=== PATIENT | male | born 1945 | race African-American/Black ===

== ENCOUNTER 2020-07-31 20:55 | Observation (INO) | payer MEDICARE, SELFPAY ==
--- NOTE | ~2020-07-31 | CT_ITS ---
EXAMINATION: CT abdomen pelvis wo con DATE: 07/31/2020 23:30 INDICATION: Lower abdominal pain and distention TECHNIQUE: Computed tomography (CT) of the abdomen and pelvis was performed without intravenous contr ast. The dose-length product (DLP) was 1240.56 mGy-cm. Automated exposure control and iterative recon struction technique were employed. COMPARISON: 03/16/2015 FINDINGS: Minimal dependent atelectasis is present in the lung bases. The heart size is normal. There is a chronic small right pleural effusion. There is a small sliding hiatal hernia. Within the limita tions of noncontrast examination, the liver, spleen, pancreas, gallbladder, and adrenal glands are no rmal. Cysts of the kidneys measure up to 3 cm on the right. No pathologically enlarged abdominal or p elvic lymph nodes are identified. There are multiple dilated loops of small bowel in the left abdomen . A relative transition is present in the midabdomen. The distal small bowel and colon are partially decompressed. There is moderate lumbar spondylosis. IMPRESSION: 1. Dilated small bowel of the left abdomen consistent with ileus versus obstruction. Reviewed, dictated and finalized at location A. IMPRESSION: 1. Dilated small bowel of the left abdomen consistent with ileus versus obstruc tion.
--- NOTE | ~2020-07-31 | XR_ITS ---
XR UGI water soluble w sbs DATE: 08/01/2020 10:01 INDICATION: Abdominal pain, distention, constipation. Dilated small bowel. TECHNIQUE: Single contrast upper gastrointestinal series and small bowel follow-through 173.991 DAP 101 images 0.8 minutes fluoroscopy time COMPARISON: 07/31/[address] abdomen pelvis FINDINGS: No stricture, mucosal fold thickening, ulceration or intraluminal mass lesion of the esopha lily or stomach is detected. There is a small ulcer in the inferior portion of the duodenal bulb with surrounding mound of edema. There is adjacent mucosal fold thickening. There is mild proximal to mid small bowel dilatation. Contrast material reaches the colon within 1 ho ur; no evidence of small bowel obstruction. No persistent small bowel filling defect is evident. Spot radiographs of the terminal ileum reveal no apparent abnormality. IMPRESSION: Duodenal ulcer No evidence of small bowel obstruction Reviewed, dictated and finalized at [facility]. Reviewed, dictated and finalized at location A.
[2020-07-31 21:01] VITALS: BP 141/68; PULSE 92; RESP 18; TEMP 36.1; O2SAT 100
[2020-07-31 21:18] LABS: Basophils Percent Auto 0.5 % (0.2-1.2); Eosinophils Absolute Auto 0.2 K/mm3 (0-0.3); Eosinophils Percent Auto 1.8 % (0-4.4); Hematocrit 40.9 % (42.0-52.0); Hemoglobin 14.5 g/dL (14.0-18.0); Immature Granulocyte Absolute 0.06 K/mm3 (0.00-0.031); Immature Granulocyte Percent A 0.7 % (0-0.5); Lymphocytes Absolute Auto 1.21 K/mm3 (0.9-3.2); Lymphocytes Percent Auto 13.8 % (18.3-44.2); Mean Corpuscular HGB Conc 35.5 g/dl (32-36); Mean Platelet Volume 9.8 fl (7.4-10.4); Monocytes Percent Auto 11.8 % (2.6-8.5); Neutrophils Absolute Auto 6.3 K/mm3 (1.3-6.7); Neutrophils Percent Auto 71.4 % (45.5-73.1); Platelet Count Result 304 k/mm3 (150-375); Red Blood Count 4.26 M/mm3 (4.6-6.20); Red Cell Distribution Width 14.6 % (11.5-14.5); White Blood Count 8.8 K/mm3 (4.5-10.0)
[2020-07-31 21:26] LABS: Add Urine Microscopic? YES; Appearance Urine Cloudy (Clear); Bilirubin Urine Negative (Negative); Blood Urine Negative (Negative); Color Urine Amber (Yellow); Glucose Urine UA Negative (Negative); Ketones Urine Negative (Negative); Leukocyte Esterase Ur Negative LEU/UL (Negative); Nitrate Urine Negative (Negative); Protein Urine 2+ mg/dL (Negative); Urobilinogen Urine Negative mg/dL (<2.0)
[2020-07-31 21:30] LABS: Alanine Aminotransferase 16 U/L (4-50); Albumin Level 3.7 g/dL (3.5-5.1); Alkaline Phosphatase 80 U/L (38-126); Anion Gap 12 mmol/L (8-16); Aspartate Amino Transferase 23 U/L (17-59); Bilirubin,Total 0.5 mg/dL (0.2-1.3); Blood Urea Nitrogen 63 mg/dL (9-20); Calcium 8.8 mg/dL (8.4-10.2); Carbon Dioxide 26 mmol/L (22-30); Chloride 100 mmol/L (98-107); Estimated CRCL calculation 35 ml/min; Estimated Glomerular Filt Rate 40; Glucose 179 mg/dL (75-110); Lipase 69 U/L (23-300); Potassium 3.3 mmol/L (3.4-5.0); Sodium 138 mmol/L (137-145)
[2020-07-31 21:38] LABS: Bacteria Urine 1+ /hpf; Mucus Urine Few /lpf; RBC Urine 0-2 /hpf (0-2); Squamous Epithelial Cell Urine Rare /hpf (Few); WBC Urine None seen /hpf (0-3)
[2020-07-31] MEDS: SODIUM CHLORIDE 0.9% IV 1,000 ML 999 ML IV CONT (23:12)
[2020-07-31] MEDS: ONDANSETRON INJ 4 MG/2 ML VIAL IV PUSH (23:12)
[2020-07-31 23:43] VITALS: BP 133/71; PULSE 87; RESP 14; O2SAT 93
--- NOTE | 2020-08-01 01:21 | ED.ABDPAIN ---
HPI - Abdominal Pain General Chief Complaint: Abdominal Pain Stated Complaint: abd pain, n/v, diarrhea Time Seen by Provider: 07/31/20 22:56 History of Present Illness HPI narrative: Patient is a 75-year-old male who presents ER with abdominal pain and distention. Reports 5 days ago he started having lower abdominal cramping. He is then developed distention and bloating in his abdomen. Has frequent belching. He has had occasional emesis that improves some of his discomfort. Reports 2-3 loose stools over the last 5 days. Reports she has been flatulent. No fevers or chills or sweats. No previous surgeries to the abdomen. Has taken Pepto-Bismol without relief. Related Data Home Medications Medication Instructions Recorded Confirmed warfarin 1 mg tablet 3 mg PO QTUTHSA tablet 09/09/19 fluticasone propionate 50 2 spray NASAL DAILY 09/11/19 mcg/actuation nasal spray,suspension methotrexate sodium 2.5 mg tablet 20 mg PO WEEKLY tablet 09/11/19 warfarin 1 mg tablet 0.5 mg PO DAILY tablet 09/11/19 warfarin 4 mg tablet 8 mg PO DAILY tablet 09/11/19 warfarin 4 mg tablet 4 mg PO QTUTHSASU 09/15/19 warfarin 1 mg tablet 0.5 mg PO .QSAMOWEFR tablet 10/22/19 warfarin 5 mg tablet 5 mg PO DAILY 10/22/19 Allergies Allergy/AdvReac Type Severity Reaction Status Date / Time No Known Allergies Allergy Mild Verified 07/31/20 22:57 Review of Systems Review of Systems: All systems reviewed & are unremarkable except as noted in HPI and below Constitutional: Constitutional: Denies chills, Denies fever(s) and Denies weakness ENT: Denies nasal congestion and Denies sore throat Cardiovascular: Cardiovascular: Denies chest pain and Denies radiating jaw, neck or arm pain Respiratory: Respiratory: Denies cough and Denies dyspnea Gastrointestinal: Gastrointestinal: Reports abdominal pain, Reports bloating, Denies constipation, Reports diarrhea, Reports nausea and Reports vomiting [facility] Past Medical History Medical History (Updated 08/01/20 @ 01:46 by James Mancuso MD) DVT (deep venous thrombosis) Essential (primary) hypertension Gastro-esophageal reflux disease without esophagitis Gout, unspecified Hypercholesterolemia Hypothyroidism Prostate cancer Rheumatoid arthritis Surgical History Surgical History (Updated 08/01/20 @ 01:22 by James Mancuso MD) No history of previous surgery Social History Social History Smoking status: Never smoker Second hand tobacco smoke exposure: No Alcohol intake: current Exam Narrative: Exam Narrative: GENERAL: Well-appearing, well-nourished, and in no acute distress. HEAD: Normocephalic, atraumatic. CHEST: Clear to auscultation. No respiratory distress. HEART: Regular rate and rhythm. Normal peripheral pulses. ABDOMEN: Soft, nontender, distended, hypoactive bowel sounds. EXTREMITIES: Normal range of motion. 1+ edema. SKIN: Warm, dry, no rash. NEURO: Alert and oriented x3. PSYCH: Normal mood and affect. Course Course Emergency Course: Discussed case with general surgery. Admit for observation and small bowel follow-through in the morning. Obstruction versus ileus. Difficult to discern with noncontrast CT. Vital Signs Vital signs: Vital Signs Temperature 96.9 F L 07/31/20 21:01 Pulse Rate 92 07/31/20 21:01 Respiratory Rate 18 07/31/20 21:01 Blood Pressure 141/68 H 07/31/20 21:01 Pulse Oximetry 100 07/31/20 21:01 Temperature 96.9 F L 07/31/20 21:01 Pulse Rate 87 07/31/20 23:43 Respiratory Rate 14 07/31/20 23:43 Blood Pressure 133/71 07/31/20 23:43 Pulse Oximetry 93 07/31/20 23:43 MDM - Abdominal Pain Lab Data Result diagrams: 07/31/20 21:09 07/31/20 21:09 Labs: Lab Results 07/31/20 07/31/20 07/31/20 Range/Units 21:09 21:09 21:10 WBC 8.8 (4.5-10.0) K/mm3 RBC 4.26 L (4.6-6.20) M/mm3 Hgb 14.5 (14.0-18.0)
[2020-08-01 01:35] VITALS: BP 142/70; PULSE 87; RESP 18; TEMP 36.6; O2SAT 93
[2020-08-01 01:59] LABS: INR 2.7
[2020-08-01 02:01] LABS: Partial Thromboplastin Time 65.9 SECONDS (22.3-36.8)
[2020-08-01 02:15] VITALS: BP 141/68; PULSE 87; RESP 20; TEMP 36.9; O2SAT 97; BMI 35.2
--- NOTE | 2020-08-01 02:45 | ADMGEN ---
This patient, Jed Oconnor Jr., was admitted to 3 [facility] Surg Room 317-02. Patient/family oriented to hospital policies and general routines including ID bracelet, bed and alarms, visiting hours, pain management, procedures, bathroom and other care routines, personal items, smoking policy, room service/diet, and visiting hours. Valuables list has been completed. Information on how to activate the Rapid Response Team has been discussed. Patient/Family are encouraged to report perceived risks to care and to ask questions if they do not understand what they are told or what they should do.
[2020-08-01 06:00] VITALS: BP 151/74; PULSE 89; RESP 20; TEMP 37.1; O2SAT 95
--- NOTE | 2020-08-01 13:12 | PM.SD ---
Same Day Admit/Disch: HPI History of Present Illness Chief complaint: abdominal pain, bloating Narrative: Jed Oconnor Jr. is a 75 year old male Who presented to the emergency department overnight with abdominal pain and bloating over the past week. The patient has been experiencing predominantly lower abdominal pain and slightly pain off to the right lower abdomen. He is also been bloated. He has had nausea and vomiting. His stools have been somewhat loose. He states that he tried a Dulcolax tablet to help his bowels move, but he did not have any significant relief. He has never had symptoms like this before and he denies any prior abdominal surgeries. He does get acid reflux and heartburn fairly frequently and usually takes Phazyme to help with this. He denies any blood in his stool and denies any black tarry stools. He was admitted and kept NPO. A small-bowel follow-through was obtained this morning and he has had multiple bowel movements since then. He states that his pain and bloating have subsided also. He is hungry and wants to eat. [facility] Past Medical History Medical History DVT (deep venous thrombosis) Essential (primary) hypertension Gastro-esophageal reflux disease without esophagitis Gout, unspecified Hypercholesterolemia Hypothyroidism Prostate cancer Rheumatoid arthritis Surgical History Surgical History No history of previous surgery Family History Family History Mother Hypertension Cerebrovascular accident Sibling Cerebrovascular accident Cancer Social History Social History Smoking status: Never smoker Second hand tobacco smoke exposure: No Alcohol intake: current Substance use: never Spiritual care concerns: No Same Day Admit/Disch: Med Pre-admit Medications Home Medications Medication Instructions Recorded Confirmed Type fluticasone propionate 50 2 spray NASAL DAILY PRN 09/11/19 08/01/20 History mcg/actuation nasal spray,suspension methotrexate sodium 2.5 mg tablet 20 mg PO WEEKLY tablet 09/11/19 08/01/20 History tadalafil 20 mg tablet 20 mg PO DAILY PRN #8 tablet 02/02/20 08/01/20 Rx nifedipine 90 mg tablet,extended 90 mg PO DAILY #90 tablet 05/28/20 08/01/20 Rx release 24 hr potassium chloride 20 mEq 20 meq PO DAILY #90 tablet 05/28/20 08/01/20 Rx tablet,extended release warfarin 6 mg tablet 6 mg PO DAILY #90 tablet 06/19/20 08/01/20 Rx allopurinol 300 mg tablet 300 mg PO DAILY #90 tablet 07/04/20 08/01/20 Rx atenolol 50 mg-chlorthalidone 25 1 tablet PO DAILY #90 tablet 07/04/20 08/01/20 Rx mg tablet glimepiride 1 mg tablet 1 mg PO QAM #90 tablet 07/04/20 08/01/20 Rx levothyroxine 50 mcg tablet 50 mcg PO DAILY #90 tablet 07/14/20 08/01/20 Rx Exam Const: General: alert; No acute distress Orientation/consciousness: patient oriented x3 Limitations: no limitations HENMT: Head: normocephalic and atraumatic Ears: hearing grossly normal bilaterally General nose exam: Normal external nose present and Normal nares present Mouth: Yes Normal oral and palatal mucosa present and Yes moist mucous membranes Eyes: General: appearance normal, both eyes and all related structures Conjunctivae: conjunctivae normal Sclera: sclerae normal Pupils: Equal, round and reactive pupils present EOM: EOMs intact bilaterally Neck: Neck: normal visual inspection, full ROM, no lymphadenopathy, supple and no JVD Lymphatic: no lymphadenopathy noted Chest: Chest palpation & inspection: normal inspection of the chest Resp: Effort & Inspection: normal respiratory effort and able to speak in complete sentences Auscultation: clear to auscultation bilaterally Percussion: percussion normal Cardio: Jugular venous distension: no JVD Rate: regular rate Rhyth
[2020-08-01 14:00] VITALS: BP 126/58; PULSE 89; RESP 20; TEMP 37.4; O2SAT 95
--- NOTE | 2020-08-01 17:40 | PC.NURSE ---
Pt is A&O x 3. Pt has discharge orders in. Pt has had IV removed, and discharge paperwork reviewed. Pt exhibited good understanding of discharge instructions. Pt was assisted downstairs per wheelchair, by staff.
== END 2020-08-01 17:42 | disposition home or self-care (01) ==
LOC: ANHED 08-01 01:46 → ANH3MEDSUR 08-01 02:04
PROVIDERS: Admitting Provider Surgery; Emergency Provider Emergency Medicine; PCP Internal Medicine; Visit Provider Surgery
DX: K26.9 Duodenal ulcer, unspecified as acute or chronic, without hemorrhage or perforation (principal); R93.5 Abnormal findings on diagnostic imaging of other abdominal regions, including retroperitoneum; I10 Essential (primary) hypertension; E03.9 Hypothyroidism, unspecified; Z86.718 Personal history of other venous thrombosis and embolism; Z85.46 Personal history of malignant neoplasm of prostate
CPT/HCPCS: 36415; 74176; 74240; 74248; 80053; 81001; 83690; 85025; 85610; 85730; 96361; 96374; 99285; A9270; G0378; J2405; J7030

== ENCOUNTER 2020-09-20 22:03 | Inpatient (IN) | payer MEDICARE, SELFPAY ==
--- NOTE | ~2020-09-20 | CT_ITS ---
. EXAMINATION: CT guide absc cath placement DATE: 09/22/2020 15:10 INDICATION: Perforated appendicitis with intra-abdominal abscess. TECHNIQUE: The procedure including the risks, benefits, and alternatives was discussed with the patie nt. Risks discussed included bleeding and infection. The patient understood the risks and benefits an d agreed to proceed. The patient was confirmed to be receiving appropriate antibiotic coverage. The skin overlying the abdomen was prepped and draped in usual sterile fashion. Anesthetic was administe red with 1% lidocaine subcutaneously. An 18 gauge trochar needle was inserted into the abdominal absc ess with CT guidance. The needle was exchanged over a wire for 6 Kinyarwanda and 8 Kinyarwanda dilators and the n for an 8.5 Kinyarwanda pigtail catheter. The catheter was stitched to the skin, and a sterile dressing w as applied. The mA was adjusted according to patient size. Iterative reconstruction technique was emp loyed. The dose-length product was 171.01 mGy-cm. There were no immediate complications. FINDINGS: CT images demonstrate the catheter within the fluid collection. 15 mL fluid was aspirated f or testing. IMPRESSION: 1. Successful CT-guided abdominal abscess drainage. 2. 15 mL whitehead, opaque, foul-smelling fluid was sent for aerobic and anaerobic cultures. Reviewed, dictated and finalized at location A. CREAM VENDOR IMPRESSION: 1. Successful CT-guided abdominal abscess drainage. 2. 15 mL whitehead, opaque, foul-smelling fluid was sent for aerobic and anaerobic cu ltures.
--- NOTE | ~2020-09-20 | CT_ITS ---
EXAMINATION: CT abdomen pelvis wo con DATE: 09/20/2020 23:54 INDICATION: Diffuse abdominal pain TECHNIQUE: Computed tomography (CT) of the abdomen and pelvis was performed without intravenous contr ast. Automated exposure control and iterative reconstruction technique were employed. The dose-length product was 1231.16 mGy-cm. COMPARISON: 08/01/2020 and 03/16/2015 FINDINGS: Long axis and scattered mild atelectasis at the bilateral lower lung zones. Heart size is normal. No pericardial or pleural effusion. Liver, gallbladder, spleen, pancreas and bilateral adrenal glands ar e normal. Bilateral renal cysts the largest on the right measuring 3.7 cm. Mild scattered colonic div erticulosis without adjacent inflammatory change to suggest diverticulitis. The central appendix appe ars dilated to approximately 2 cm with normal caliber distal tip and prominent surrounding inflammato ry stranding suggesting acute appendicitis with rupture. There a 4.7 x 3.1 x 3.6 cm loculated fluid c ollection suspicious for abscess situated amongst the small bowel slightly anterior and medial to the appendix. No dilated bowel to suggest obstruction. Bladder is normal. No free intraperitoneal gas. N o pathologically enlarged abdominal or pelvic lymphadenopathy. Mild lumbar spondylosis with grade 1 a nterolisthesis L4 on L5. IMPRESSION: 1. Likely ruptured acute appendicitis with prominent inflammatory stranding in the right lower quadra nt surrounding a likely 4.7 x 3.1 x 3.6 cm abscess. Reviewed, dictated and finalized at [facility]. E LOADER IMPRESSION: 1. Likely ruptured acute appendicitis with prominent inflammatory stranding in the right lower quadrant surrounding a likely 4.7 x 3.1 x 3.6 cm abscess.
[2020-09-20 22:10] VITALS: BP 155/87; PULSE 126; RESP 22; TEMP 37.5; O2SAT 96
[2020-09-20 22:36] LABS: Basophils Percent Auto 0.2 % (0.2-1.2); Eosinophils Percent Auto 0.1 % (0-4.4); Hematocrit 42.2 % (42.0-52.0); Hemoglobin 14.6 g/dL (14.0-18.0); Immature Granulocyte Absolute 0.06 K/mm3 (0.00-0.031); Immature Granulocyte Percent A 0.4 % (0-0.5); Lymphocytes Absolute Auto 0.95 K/mm3 (0.9-3.2); Mean Corpuscular HGB Conc 34.6 g/dl (32-36); Mean Corpuscular Hemoglobin 33.1 pg (26-34); Mean Corpuscular Volume 95.7 fl (80-100); Mean Platelet Volume 10.8 fl (7.4-10.4); Monocytes Absolute Auto 1.7 K/mm3 (0.1-0.6); Monocytes Percent Auto 12.5 % (2.6-8.5); Neutrophils Absolute Auto 10.9 K/mm3 (1.3-6.7); Neutrophils Percent Auto 79.8 % (45.5-73.1); Platelet Count Result 175 k/mm3 (150-375); Red Blood Count 4.41 M/mm3 (4.6-6.20); White Blood Count 13.6 K/mm3 (4.5-10.0)
[2020-09-20] MEDS: SODIUM CHLORIDE 0.9% IV 1,000 ML 999 ML IV CONT (22:46)
--- NOTE | 2020-09-20 22:48 | ED.ABDPAIN ---
HPI - Abdominal Pain General Chief Complaint: Abdominal Pain Stated Complaint: stomach pain Time Seen by Provider: 09/20/20 22:13 Source: patient Mode of arrival: ambulatory Limitations: no limitations History of Present Illness HPI narrative: This patient is a 75 year old male who presents for evaluation of lower abdominal pain. He states this pain has been present for 4 days and it has been constant. He denies nausea, vomiting , fever or chills. He has been taking a stool softeners and he has been having loose stools. Related Data Home Medications Medication Instructions Recorded Confirmed fluticasone propionate 50 2 spray NASAL DAILY PRN 09/11/19 08/10/20 mcg/actuation nasal spray,suspension methotrexate sodium 2.5 mg tablet 20 mg PO WEEKLY tablet 09/11/19 08/10/20 warfarin 1 mg tablet 1 mg PO .QD tablet 08/08/20 08/10/20 Allergies Allergy/AdvReac Type Severity Reaction Status Date / Time No Known Allergies Allergy Mild Verified 08/10/20 08:44 Review of Systems Review of Systems: All systems reviewed & are unremarkable except as noted in HPI and below Constitutional: Constitutional: Denies chills and Denies fever(s) Cardiovascular: Cardiovascular: Denies chest pain Respiratory: Respiratory: Denies dyspnea Gastrointestinal: Gastrointestinal: Reports abdominal pain and Reports diarrhea [facility] Past Medical History Medical History (Updated 09/21/20 @ 02:03 by Sofiya Irving MD) DVT (deep venous thrombosis) Essential (primary) hypertension Gastro-esophageal reflux disease without esophagitis Gout, unspecified Hypercholesterolemia Hypothyroidism Prostate cancer Rheumatoid arthritis Surgical History Surgical History No history of previous surgery Family History Family History Mother Hypertension Cerebrovascular accident Sibling Cerebrovascular accident Cancer Social History Social History Smoking status: Never smoker Second hand tobacco smoke exposure: No Alcohol intake: current Substance use: never Gender identity (if verbalized by the patient): Male Spiritual care concerns: No Exam Const: General: no acute distress and alert; No ill appearing Orientation/consciousness: patient oriented x3 Eyes: Pupils: Equal, round and reactive pupils present EOM: EOMs intact bilaterally Chest: Chest palpation & inspection: normal inspection of the chest Resp: Effort & Inspection: normal respiratory effort and no retractions Auscultation: clear to auscultation bilaterally Cardio: Rate: tachycardic Rhythm: regular rhythm Heart sounds: no murmurs GI: GI Palp: Yes Soft to palpation, Yes Tenderness to palpation present (GI) (Diffuse), Yes Guarding due to palpation present (GI) and No Rigid due to palpation Auscultation: Hypoactive bowel sounds present Back/Spine/Pelvis: Back: no CVA tenderness Skin: General skin exam: normal color Rashes: no rashes Neuro: General: patient oriented x3, moves all extremities and CN's II-XI intact bilaterally Course Consultations Consultation #1: I discussed case with Dr. Buck. I discussed cT showing ruptured appy with abscess. I asked to admit patient to hospitalist. Date: 09/21/20 Time: 00:28 Consultation #2: I discussed case with Dr. Abraham. He states he will consult but patient will need to be admitted to the surgeon given CT findings of ruptured appy with abscess Date: 09/21/20 Time: 00:45 Consultation #3: I Discussed vitals and CT scan again with DR. Buck. I discussed hospitalist declined admission . Dr. Buck accepts to service. No further recommendations. Date: 09/21/20 Time: 01:13 Vital Signs Vital signs: Vital Signs Temperature 99.5 F 09/20/20 22:10 Pulse Rate 126 H 09/20/20 22:10 Respiratory Rate 22 H 09/20/20 22:10 Blood Pres
[2020-09-20 23:10] LABS: INR 2.1; Prothrombin Time 24.1 Seconds (11.1-14.7)
[2020-09-20 23:11] LABS: Partial Thromboplastin Time 55.6 SECONDS (22.3-36.8)
[2020-09-20 23:16] LABS: Lactic Acid Reflex 1.7 mmol/L (0.7-2.1)
[2020-09-20 23:25] LABS: Alanine Aminotransferase 15 U/L (4-50); Albumin Level 3.5 g/dL (3.5-5.1); Alkaline Phosphatase 74 U/L (38-126); Anion Gap 12 mmol/L (8-16); Aspartate Amino Transferase 32 U/L (17-59); Bilirubin,Total 0.7 mg/dL (0.2-1.3); Blood Urea Nitrogen 45 mg/dL (9-20); Calcium 8.3 mg/dL (8.4-10.2); Carbon Dioxide 24 mmol/L (22-30); Chloride 100 mmol/L (98-107); Estimated CRCL calculation 28 ml/min; Estimated Glomerular Filt Rate 31; Glucose 120 mg/dL (75-110); Lipase 55 U/L (23-300); Potassium 2.8 mmol/L (3.4-5.0); Sodium 136 mmol/L (137-145)
[2020-09-21] VITALS (12 sets, daily range): BP systolic 138–166; BP diastolic 73–85; PULSE 93–117; RESP 20; TEMP 36.2–37.9; O2SAT 94–99; BMI 32.7
[2020-09-21 00:55] LABS: Add Urine Microscopic? YES; Appearance Urine Cloudy (Clear); Bacteria Urine Trace /hpf; Bilirubin Urine Negative (Negative); Blood Urine Negative (Negative); Color Urine Yellow (Yellow); Glucose Urine UA Negative (Negative); Ketones Urine Trace mg/dL (Negative); Leukocyte Esterase Ur Negative LEU/UL (Negative); Mucus Urine Few /lpf; Nitrate Urine Negative (Negative); Protein Urine 2+ mg/dL (Negative); Specific Grav Ur 1.017 (1.001-1.035); Squamous Epithelial Cell Urine Occasional /hpf (Few); Urobilinogen Urine Negative mg/dL (<2.0)
[2020-09-21] MEDS: LACTATED RINGERS 1,000 ML 999 ML IV CONT (01:20)
--- NOTE | 2020-09-21 02:02 | ECG_ITS ---
Measurements Intervals [place] Rate: 113 P: 43 WI: 162 QRS: 46 QRSD: 96 T: 2 QT: 281 QTc: 385 Interpretive Statements SINUS TACHYCARDIA BORDERLINE ST-T WAVE ABNORMALITY- DIFFUSE LEADS BASELINE ARTIFACT- AVL ABNORMAL ECG Electronically Signed On 09-21-2020 8:53:46 CALL CENTER ASSISTANT by Josef Newton D.O.
--- NOTE | 2020-09-21 02:24 | ADMGEN ---
This patient, Jed Oconnor Jr., was admitted to Medical Room 257-01. Patient/family oriented to hospital policies and general routines including ID bracelet, bed and alarms, visiting hours, pain management, procedures, bathroom and other care routines, personal items, smoking policy, room service/diet, and visiting hours. Information on how to activate the Rapid Response Team has been discussed. Patient/Family are encouraged to report perceived risks to care and to ask questions if they do not understand what they are told or what they should do.
[2020-09-21] MEDS: LACTATED RINGERS 1,000 ML 125 ML IV CONT ×3 (02:31→23:20)
--- NOTE | 2020-09-21 04:04 | PM.IMCN ---
Assessment and Plan Assessment and plan (1) Acute appendicitis with rupture: Code(s): K35.32 - Acute appendicitis with perforation and localized peritonitis, without abscess Status: Acute Assessment and Plan: The patient has been admitted to the medical-surgical floor. NPO. Continue wide-spectrum antibiotics. Monitor vital signs and urine output closely. Continue general surgery recommendations. (2) Hypokalemia: Code(s): E87.6 - Hypokalemia Status: Acute Assessment and Plan: Potassium has been replaced in the emergency room we will check serum potassium in a.m.. Continue replace potassium as needed. (3) Sepsis: Code(s): A41.9 - Sepsis, unspecified organism Status: Acute Assessment and Plan: Appears to be secondary to acute appendicitis with rupture and abscess. Monitor vital signs and urine output closely. Continue to monitor acid-base status. Continue wide-spectrum antibiotics. Blood cultures are pending. General surgery to control source of sepsis which at this time appears to be from ruptured appendicitis. (4) Acute renal failure: Code(s): N17.9 - Acute kidney failure, unspecified Status: Acute Assessment and Plan: Acute versus chronic renal failure. Monitor renal function and urine output. Continue IV fluid challenge overnight. Renally dose medications. Avoid nephrotoxin agents. (5) Leukocytosis: Code(s): D72.829 - Elevated white blood cell count, unspecified Status: Acute Assessment and Plan: Likely secondary to appendicitis and sepsis. Monitor CBCD. (6) Weakness: Code(s): R53.1 - Weakness Status: Acute Assessment and Plan: Likely secondary to sepsis and acute appendicitis. Fall precautions. Consider PT OT evaluation when appropriate. (7) Essential (primary) hypertension: Code(s): I10 - Essential (primary) hypertension Status: Acute Assessment and Plan: Monitor blood pressure. Hold home antihypertensives. We will administer IV hydralazine with parameters. 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 (9) Gastro-esophageal reflux disease without esophagitis: Code(s): K21.9 - Gastro-esophageal reflux disease without esophagitis Status: Chronic Assessment and Plan: IV PPI therapy for GI prophylaxis. (10) Hypothyroidism: Qualifiers: Hypothyroidism type: unspecified Qualified Code(s): E03.9 - Hypothyroidism, unspecified Code(s): E03.9 - Hypothyroidism, unspecified Status: Chronic Assessment and Plan: We will administer levothyroxine IV. (11) Hypercholesterolemia: Code(s): E78.00 - Pure hypercholesterolemia, unspecified Status: Chronic (12) Rheumatoid arthritis: Qualifiers: Rheumatoid arthritis location: unspecified site Rheumatoid factor presence: unspecified presence Qualified Code(s): M06.9 - Rheumatoid arthritis, unspecified Code(s): M06.9 - Rheumatoid arthritis, unspecified Status: Chronic Assessment and Plan: resume methotrexate when the patient is eating again. 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 Monitor PT INR. Consider vitamin K for reversal of INR if necessary. Additional Plan Date of service was September 21, 2020 at approximately 3:15 a.m. HPI Data of Consult Consult date: 09/21/20 Requesting Physician: Kaila Buck MD Primary Care Provider: Puneet Courtney DO Con
[2020-09-21 05:01] LABS: Basophils Percent Auto 0.3 % (0.2-1.2); Eosinophils Percent Auto 0.3 % (0-4.4); Hemoglobin 13.1 g/dL (14.0-18.0); Immature Granulocyte Absolute 0.06 K/mm3 (0.00-0.031); Immature Granulocyte Percent A 0.6 % (0-0.5); Lymphocytes Absolute Auto 0.73 K/mm3 (0.9-3.2); Lymphocytes Percent Auto 7.4 % (18.3-44.2); Mean Corpuscular HGB Conc 35.4 g/dl (32-36); Mean Corpuscular Hemoglobin 33.5 pg (26-34); Mean Corpuscular Volume 94.6 fl (80-100); Mean Platelet Volume 10.2 fl (7.4-10.4); Monocytes Absolute Auto 1.3 K/mm3 (0.1-0.6); Monocytes Percent Auto 13.1 % (2.6-8.5); Neutrophils Absolute Auto 7.7 K/mm3 (1.3-6.7); Neutrophils Percent Auto 78.3 % (45.5-73.1); Platelet Count Result 169 k/mm3 (150-375); Red Blood Count 3.91 M/mm3 (4.6-6.20); Red Cell Distribution Width 15.7 % (11.5-14.5); White Blood Count 9.9 K/mm3 (4.5-10.0)
[2020-09-21 05:15] LABS: INR 2.2; Prothrombin Time 25.3 Seconds (11.1-14.7)
[2020-09-21 05:17] LABS: Partial Thromboplastin Time 67.7 SECONDS (22.3-36.8)
[2020-09-21] MEDS: LEVOTHYROXINE SODIUM INJ 100 MCG/5 ML VIAL 25 MCG IV PUSH (06:29)
[2020-09-21 06:39] LABS: Glucose Point of Care 129 (65-105)
--- NOTE | 2020-09-21 08:13 | PM.IMHP ---
H&P: HPI History of Present Illness Date/Time: 09/21/20 08:13 Chief complaint: Acute appendicitis with abscess Narrative: Jed Oconnor Jr. is a 75 year old male presenting to the ED c 1 wk h/o progressively worsening lower abd pain. Pt reports pain initially mild and diffuse and now constant, severe, and localized more to RLQ. Pt also c/o extreme weakness and fatigue. Pt reports very poor appetite over last week. The pt denies any f/c, previous episodes. Review of Systems Constitutional: Constitutional: Reports anorexia, Denies chills, Reports fatigue, Denies fever(s), Reports lethargy, Reports malaise, Reports poor appetite, Reports weakness, Denies weight gain and Denies weight loss Eyes: Eyes: Reports no additional eye complaints ENT: Reports system reviewed and no additional complaints, except as documented Cardiovascular: Cardiovascular: Reports no additional cardiovascular complaints Respiratory: Respiratory: Reports no additional respiratory complaints Gastrointestinal: Gastrointestinal: Reports abdominal pain, Reports bloating, Denies fecal incontinence, Denies diarrhea, Denies loose stools, Reports nausea and Denies vomiting Genitourinary: Genitourinary: Reports no additional male genitourinary complaints Musculoskeletal: Musculoskeletal: Reports no additional musculoskeletal complaints Integumentary/Breasts: Skin/Breast: Reports system reviewed and no additional complaints, except as docu Neurologic: Reports system reviewed and no additional complaints, except as documented Psychiatric: Psychiatric: Reports no additional psychiatric complaints Endocrine: Endocrine: Reports no additional endocrine complaints Hematologic/Lymphatic: Hematologic/Lymphatic: Reports no additional hematologic/lymphatic complaints Allergic/Immunologic: Allergic/Immunologic: Reports no additional allergic/immunologic complaints PMFSH Past Medical History Medical History DVT (deep venous thrombosis) Essential (primary) hypertension Gastro-esophageal reflux disease without esophagitis Gout, unspecified Hypercholesterolemia Hypothyroidism Prostate cancer Rheumatoid arthritis Surgical History Surgical History No history of previous surgery Family History Family History Mother Hypertension Cerebrovascular accident Sibling Cerebrovascular accident Cancer Social History Social History Smoking status: Never smoker Second hand tobacco smoke exposure: No Alcohol intake: never Substance use: never Substance use type: does not use Gender identity (if verbalized by the patient): Male Spiritual care concerns: No Meds Home Medications and Allergies Home Medications Medication Instructions Recorded Confirmed Type fluticasone propionate 50 2 spray NASAL DAILY PRN 09/11/19 09/21/20 History mcg/actuation nasal spray,suspension methotrexate sodium 2.5 mg tablet 20 mg PO WEEKLY tablet 09/11/19 09/21/20 History nifedipine 90 mg tablet,extended 90 mg PO DAILY #90 tablet 05/28/20 09/21/20 Rx release 24 hr warfarin 6 mg tablet 6 mg PO DAILY #90 tablet 06/19/20 09/21/20 Rx allopurinol 300 mg tablet 300 mg PO DAILY #90 tablet 07/04/20 09/21/20 Rx atenolol 50 mg-chlorthalidone 25 1 tablet PO DAILY #90 tablet 07/04/20 09/21/20 Rx mg tablet glimepiride 1 mg tablet 1 mg PO QAM #90 tablet 07/04/20 09/21/20 Rx levothyroxine 50 mcg tablet 50 mcg PO DAILY #90 tablet 07/14/20 09/21/20 Rx warfarin 1 mg tablet 1.5 mg PO DAILY tablet 08/08/20 09/21/20 History docusate sodium 100 mg tablet See Rx Instructions PO .COMPLEX 08/10/20 09/21/20 Rx #180 tablet sildenafil 100 mg tablet 100 mg PO DAILY PRN #8 tablet 09/08/20 09/21/20 Rx hydroxychloroquine 200 mg PO DAILY 09/21/20 09/21/20 History leflunom
--- NOTE | 2020-09-21 09:34 | P.PNIM_ITS ---
Progress Note: A&P Assessment and Plan (1) Acute appendicitis with rupture: Code(s): K35.32 - Acute appendicitis with perforation and localized peritonitis, without abscess Status: Acute Assessment and Plan: Presented with gradually worsened lower abdominal pain. Likely ruptured acute appendicitis with prominent inflammatory stranding and likely abscess. * Management per General surgery * Continue IV Zosyn at this time * Patient is NPO for planned percutaneous drainage. His warfarin is on hold at this time. * Analgesics and antiemetics as needed. Continue IV fluid rehydration (2) Sepsis: Code(s): A41.9 - Sepsis, unspecified organism Status: Acute Assessment and Plan: Patient is septic upon presentation evident by tachycardia and leukocytosis. Secondary to acute appendicitis with rupture and abscess. Lactic 1.7. Leukocytosis has resolved. Tachycardia persists. Patient remains afebrile. * Continue IV antibiotics * Continue IV fluids * Source control with planned percutaneous drainage * Blood cultures are pending. * Monitor vital signs closely (3) Hypokalemia: Code(s): E87.6 - Hypokalemia Status: Acute Assessment and Plan: Potassium low at presentation at 2.8. Patient received IV potassium replacement. Potassium improved today to _. * Monitor potassium closely and replace as needed (4) Acute renal failure: Code(s): N17.9 - Acute kidney failure, unspecified Status: Acute Assessment and Plan: Creatinine 2.5 at presentation. Last lab in July 2020 was 2.0. Suspect the patient has chronic kidney disease with probable acute injury, possibly secondary to prerenal etiology or infection. * Monitor renal function closely. Renally dose medications and avoid nephrotoxic agents. * Continue gentle IV fluids. (5) Weakness: Code(s): R53.1 - Weakness Status: Acute Assessment and Plan: Likely secondary to sepsis and acute appendicitis. Appears to be resolved. Patient is ambulating to the restroom without difficulty. He is independent in his activities of daily living. * Fall precautions in place. * Monitor closely. Consider PT and OT eval if/when appropriate (6) Essential (primary) hypertension: Code(s): I10 - Essential (primary) hypertension Status: Acute Assessment and Plan: Blood pressure evaluated today is stable at 138/75. * Home atenolol and nifedipine on hold while NPO. * IV hydralazine available as needed while PO antihypertensives on hold. (7) Gastro-esophageal reflux disease without esophagitis: Code(s): K21.9 - Gastro-esophageal reflux disease without esophagitis Status: Chronic Assessment and Plan: Asymptomatic at this time. * Begin IV Pepcid (8) Hypothyroidism: Qualifiers: Hypothyroidism type: unspecified Qualified Code(s): E03.9 - Hypothyroidism, unspecified Code(s): E03.9 - Hypothyroidism, unspecified Status: Chronic Assessment and Plan: Chronic. * IV levothyroxine while NPO. Transition to PO when clinically appropriate. * Check TSH (9) Rheumatoid arthritis: Qualifiers: Rheumatoid arthritis location: unspecified site Rheumatoid factor presence: unspecified presence Qualified Code(s): M06.9 - Rheumatoid arthritis, unspecified Code(s): M06.9 - Rheumatoid arthritis, unspecified Status: Chronic Assessment and Plan: No com
--- NOTE | 2020-09-21 09:34 | PM.IMPN ---
Progress Note: A&P Assessment and Plan (1) Acute appendicitis with rupture: Code(s): K35.32 - Acute appendicitis with perforation and localized peritonitis, without abscess Status: Acute Assessment and Plan: Presented with gradually worsened lower abdominal pain. Likely ruptured acute appendicitis with prominent inflammatory stranding and likely abscess. Management per General surgery Continue IV Zosyn at this time Patient is NPO for planned percutaneous drainage. His warfarin is on hold at this time. Analgesics and antiemetics as needed. Continue IV fluid rehydration (2) Sepsis: Code(s): A41.9 - Sepsis, unspecified organism Status: Acute Assessment and Plan: Patient is septic upon presentation evident by tachycardia and leukocytosis. Secondary to acute appendicitis with rupture and abscess. Lactic 1.7. Leukocytosis has resolved. Tachycardia persists. Patient remains afebrile. Continue IV antibiotics Continue IV fluids Source control with planned percutaneous drainage Blood cultures are pending. Monitor vital signs closely (3) Hypokalemia: Code(s): E87.6 - Hypokalemia Status: Acute Assessment and Plan: Potassium low at presentation at 2.8. Patient received IV potassium replacement. Potassium improved today to _. Monitor potassium closely and replace as needed (4) Acute renal failure: Code(s): N17.9 - Acute kidney failure, unspecified Status: Acute Assessment and Plan: Creatinine 2.5 at presentation. Last lab in July 2020 was 2.0. Suspect the patient has chronic kidney disease with probable acute injury, possibly secondary to prerenal etiology or infection. Monitor renal function closely. Renally dose medications and avoid nephrotoxic agents. Continue gentle IV fluids. (5) Weakness: Code(s): R53.1 - Weakness Status: Acute Assessment and Plan: Likely secondary to sepsis and acute appendicitis. Appears to be resolved. Patient is ambulating to the restroom without difficulty. He is independent in his activities of daily living. Fall precautions in place. Monitor closely. Consider PT and OT eval if/when appropriate (6) Essential (primary) hypertension: Code(s): I10 - Essential (primary) hypertension Status: Acute Assessment and Plan: Blood pressure evaluated today is stable at 138/75. Home atenolol and nifedipine on hold while NPO. IV hydralazine available as needed while PO antihypertensives on hold. (7) Gastro-esophageal reflux disease without esophagitis: Code(s): K21.9 - Gastro-esophageal reflux disease without esophagitis Status: Chronic Assessment and Plan: Asymptomatic at this time. Begin IV Pepcid (8) Hypothyroidism: Qualifiers: Hypothyroidism type: unspecified Qualified Code(s): E03.9 - Hypothyroidism, unspecified Code(s): E03.9 - Hypothyroidism, unspecified Status: Chronic Assessment and Plan: Chronic. IV levothyroxine while NPO. Transition to PO when clinically appropriate. Check TSH (9) Rheumatoid arthritis: Qualifiers: Rheumatoid arthritis location: unspecified site Rheumatoid factor presence: unspecified presence Qualified Code(s): M06.9 - Rheumatoid arthritis, unspecified Code(s): M06.9 - Rheumatoid arthritis, unspecified Status: Chronic Assessment and Plan: No complaints of pain at this time. Home regimen of leflunomide and hydroxychloroquine will be resumed when appropriate. Methotrexate weekly. 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 INR is therapeutic at 2.2 Warfarin held for surgery. Monitor INR. (11) Type 2 diabetes mellitus:
[2020-09-21 09:46] LABS: Anion Gap 7 mmol/L (8-16); Blood Urea Nitrogen 36 mg/dL (9-20); Calcium 7.6 mg/dL (8.4-10.2); Carbon Dioxide 24 mmol/L (22-30); Chloride 104 mmol/L (98-107); Estimated CRCL calculation 37 ml/min; Estimated Glomerular Filt Rate 45; Glucose 112 mg/dL (75-110); Potassium 2.9 mmol/L (3.4-5.0); Sodium 135 mmol/L (137-145)
[2020-09-21 11:47] LABS: Glucose Point of Care 143 (65-105)
[2020-09-21 16:48] LABS: Glucose Point of Care 126 (65-105)
[2020-09-21] MEDS: FAMOTIDINE 20 MG/2 ML VIAL IV PUSH (20:09)
[2020-09-21 23:39] LABS: Glucose Point of Care 92 (65-105)
[2020-09-22] VITALS (11 sets, daily range): BP systolic 124–151; BP diastolic 69–83; PULSE 98–116; RESP 18–20; TEMP 36.3–36.8; O2SAT 95–98
[2020-09-22] MEDS: LEVOTHYROXINE SODIUM INJ 100 MCG/5 ML VIAL 25 MCG IV PUSH (05:37)
[2020-09-22 05:47] LABS: Basophils Percent Auto 0.3 % (0.2-1.2); Eosinophils Absolute Auto 0.1 K/mm3 (0-0.3); Eosinophils Percent Auto 0.8 % (0-4.4); Hemoglobin 12.4 g/dL (14.0-18.0); Immature Granulocyte Absolute 0.34 K/mm3 (0.00-0.031); Immature Granulocyte Percent A 3.9 % (0-0.5); Lymphocytes Absolute Auto 0.82 K/mm3 (0.9-3.2); Lymphocytes Percent Auto 9.5 % (18.3-44.2); Mean Corpuscular HGB Conc 35.4 g/dl (32-36); Mean Corpuscular Hemoglobin 33.3 pg (26-34); Mean Corpuscular Volume 94.1 fl (80-100); Mean Platelet Volume 10.4 fl (7.4-10.4); Monocytes Absolute Auto 0.8 K/mm3 (0.1-0.6); Monocytes Percent Auto 9.6 % (2.6-8.5); Neutrophils Absolute Auto 6.5 K/mm3 (1.3-6.7); Neutrophils Percent Auto 75.9 % (45.5-73.1); Platelet Count Result 186 k/mm3 (150-375); Red Blood Count 3.72 M/mm3 (4.6-6.20); Red Cell Distribution Width 15.9 % (11.5-14.5); White Blood Count 8.6 K/mm3 (4.5-10.0)
[2020-09-22 05:50] LABS: Hemoglobin A1C 5.7 % (<5.7)
[2020-09-22 05:53] LABS: INR 2.3; Prothrombin Time 26.1 Seconds (11.1-14.7)
[2020-09-22 05:54] LABS: Partial Thromboplastin Time 78.4 SECONDS (22.3-36.8)
[2020-09-22 05:55] LABS: Alanine Aminotransferase 11 U/L (4-50); Albumin Level 2.8 g/dL (3.5-5.1); Alkaline Phosphatase 55 U/L (38-126); Anion Gap 8 mmol/L (8-16); Aspartate Amino Transferase 28 U/L (17-59); Bilirubin,Total 0.6 mg/dL (0.2-1.3); Blood Urea Nitrogen 23 mg/dL (9-20); Calcium 7.8 mg/dL (8.4-10.2); Carbon Dioxide 26 mmol/L (22-30); Chloride 104 mmol/L (98-107); Estimated CRCL calculation 47 ml/min; Estimated Glomerular Filt Rate 60; Glucose 89 mg/dL (75-110); Sodium 138 mmol/L (137-145)
[2020-09-22 06:01] LABS: Glucose Point of Care 91 (65-105)
--- NOTE | 2020-09-22 07:44 | PM.PNGS ---
Progress Note: A&P Assessment and Plan (1) Acute appendicitis with localized peritonitis and abscess: Qualifiers: Appendicitis gangrene presence: unspecified whether gangrene present Appendicitis perforation presence: with perforation Qualified Code(s): K35.33 - Acute appendicitis with perforation and localized peritonitis, with abscess Code(s): K35.33 - Acute appendicitis with perforation and localized peritonitis, with abscess Status: Acute Assessment and Plan: improving. Continue IV antibiotics. Hopefully proceed with image guided drainage of right lower quadrant abscess today. Abscess noted to be 4.[address] scan. 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 Continue to hold warfarin. (3) Hypokalemia: Code(s): E87.6 - Hypokalemia Status: Acute Assessment and Plan: Change IV fluids to D5 normal saline with 40 of KCl continue to follow potassium. (4) Sepsis: Qualifiers: Sepsis type: sepsis due to unspecified organism Sepsis acute organ dysfunction status: with acute organ dysfunction Severe sepsis acute organ dysfunction type: acute renal failure Acute renal failure type: unspecified Severe sepsis shock status: without septic shock Qualified Code(s): A41.9 - Sepsis, unspecified organism; R65.20 - Severe sepsis without septic shock; N17.9 - Acute kidney failure, unspecified Code(s): A41.9 - Sepsis, unspecified organism Status: Acute Assessment and Plan: Improving but still had some low-grade fever yesterday and creatinine remains elevated. (5) Acute renal failure: Qualifiers: Acute renal failure type: unspecified Qualified Code(s): N17.9 - Acute kidney failure, unspecified Code(s): N17.9 - Acute kidney failure, unspecified Status: Acute Assessment and Plan: Creatinine improving. 1.4 this morning. Subjective Subjective Date/Time Seen: 09/22/20 07:44 Patient reports: feels better, pain is less and afebrile Review of Systems Review of Systems: All systems reviewed & are unremarkable except as noted in HPI and below Constitutional: Constitutional: Denies body ache(s), Denies chills, Denies fever(s) and Denies headache(s) Cardiovascular: Cardiovascular: Denies chest pain and Denies dyspnea Respiratory: Respiratory: Denies cough and Denies dyspnea Gastrointestinal: Gastrointestinal: Reports as per HPI Neurologic: Denies confusion and Denies headache(s) Psychiatric: Psychiatric: Denies confusion Exam Const: General: cooperative, comfortable, no acute distress, alert and awake; No confusion Nutritional Appearance: average body habitus and well nourished Orientation/consciousness: patient oriented x3 and No confusion Resp: Effort & Inspection: normal respiratory effort Auscultation: clear to auscultation bilaterally Cardio: Rate: regular rate Rhythm: regular rhythm GI: Inspection: non-distended GI Palp: Yes Soft to palpation, Yes Tenderness to palpation present (GI) ( Right lower quadrant), No Guarding due to palpation present (GI) and No Rebound tenderness present Auscultation: normal bowel sounds Neuro: General: patient oriented x3, no focal motor deficits and No confusion Extrem: General: no calf tenderness and no edema Psych: Affect: normal affect Insight: Good insight present (Psych) Judgement: Good judgement present (Psych) Objective Data Vital Signs Vital Signs: Vital Signs - 24 hr 09/21/20 08:00 09/21/20 09:30 09/21/20 12:00 Temperature Pulse Rate 115 H 112 H 101 H Respiratory Rate 20 Blood Pressure Pulse Oximetry 94 09/21/20 14:00 09/21/20 14:29 09/21/20 14:59 Temperature 37.9 C H 37.9 C H 37.7 C H Pulse Rate 109 H Respiratory Rate 20 Blood Pressure 163/85 H Pulse Oximetry 95
[2020-09-22] MEDS: FAMOTIDINE 20 MG/2 ML VIAL IV PUSH ×2 (08:07→20:56)
[2020-09-22 11:31] LABS: Glucose Point of Care 113 (65-105)
[2020-09-22] MEDS: KCL 40 MEQ/D5/0.9% SOD CHL 1,000 ML 100 ML IV CONT (12:19)
--- NOTE | 2020-09-22 14:00 | PC.NURSE ---
To CT via bed for drain placement.
--- NOTE | 2020-09-22 15:10 | PC.NURSE ---
Returned from CT via bed.
--- NOTE | 2020-09-22 15:33 | PM.IMPN ---
Progress Note: A&P Assessment and Plan (1) Acute appendicitis with rupture: Code(s): K35.32 - Acute appendicitis with perforation and localized peritonitis, without abscess Status: Deleted Assessment and Plan: Presented with gradually worsened lower abdominal pain. CT a/p showed likely ruptured acute appendicitis with prominent inflammatory stranding and likely abscess. Management per General surgery. Underwent image-guided percutaneous drainage this afternoon. Abscess fluid sent for cultures. Continue IV Zosyn at this time Analgesics and antiemetics as needed. Continue IV fluid rehydration (2) Sepsis: Qualifiers: Sepsis type: sepsis due to unspecified organism Sepsis acute organ dysfunction status: with acute organ dysfunction Severe sepsis acute organ dysfunction type: acute renal failure Acute renal failure type: unspecified Severe sepsis shock status: without septic shock Qualified Code(s): A41.9 - Sepsis, unspecified organism; R65.20 - Severe sepsis without septic shock; N17.9 - Acute kidney failure, unspecified Code(s): A41.9 - Sepsis, unspecified organism Status: Acute Assessment and Plan: Patient septic upon presentation evident by tachycardia and leukocytosis. Secondary to acute appendicitis with rupture and abscess. Lactic 1.7. Leukocytosis has resolved. Patient remains afebrile. Continue IV antibiotics. Await culture results and tailor antibiotics appropriately. IV fluids discontinued. preliminary blood cultures show no growth to date. Final cultures will be monitored. Monitor vital signs closely (3) Hypokalemia: Code(s): E87.6 - Hypokalemia Status: Acute Assessment and Plan: Potassium low at presentation at 2.8. Potassium has been replaced with slow improvement, although remains decreased. Patient had been NPO and suspect secondary to poor oral intake. 40 mEq KCL IV Monitor potassium closely and replace as needed (4) Acute renal failure: Qualifiers: Acute renal failure type: unspecified Qualified Code(s): N17.9 - Acute kidney failure, unspecified Code(s): N17.9 - Acute kidney failure, unspecified Status: Acute Assessment and Plan: Creatinine 2.5 at presentation. Last lab in July 2020 was 2.0. Suspect the patient has chronic kidney disease with probable acute injury, possibly secondary to prerenal etiology or infection. creatinine improved to 1.4 today Monitor renal function closely. Renally dose medications and avoid nephrotoxic agents. (5) Weakness: Code(s): R53.1 - Weakness Status: Acute Assessment and Plan: Likely secondary to sepsis and acute appendicitis. Resolved. Patient is ambulating to the restroom without difficulty. He is independent in his activities of daily living. Fall precautions in place. (6) Essential (primary) hypertension: Code(s): I10 - Essential (primary) hypertension Status: Acute Assessment and Plan: Blood pressure evaluated today is stable at 148/75 Resume atenolol-chlorthalidone. Previously on hold while NPO. Home nifedipine is non-formulary. Monitor BP daily. (7) Gastro-esophageal reflux disease without esophagitis: Code(s): K21.9 - Gastro-esophageal reflux disease without esophagitis Status: Chronic Assessment and Plan: Asymptomatic at this time. Continue IV Pepcid (8) Hypothyroidism: Qualifiers: Hypothyroidism type: unspecified Qualified Code(s): E03.9 - Hypothyroidism, unspecified Code(s): E03.9 - Hypothyroidism, unspecified Status: Chronic Assessment and Plan: Chronic. TSH is wnl. Resume PO levothyroxine. IV levothyroxine while NPO discontinued. (9) Rheumatoid arthritis: Qualifiers: Rheumatoid arthritis location: unspecified site Rheumatoid factor presence: unspecified presence Qualified Code
[2020-09-22 16:22] LABS: Glucose Point of Care 87 (65-105)
[2020-09-22] MEDS: ACETAMINOPHEN 325 MG TABLET 650 MG PO (16:58)
[2020-09-22] MEDS: KCL 30 MEQ/0.9% SOD CHL 1,000 ML 80 ML IV CONT (17:29)
[2020-09-22 23:26] LABS: Glucose Point of Care 99 (65-105)
[2020-09-23] VITALS (9 sets, daily range): BP systolic 107–148; BP diastolic 56–77; PULSE 69–107; RESP 14–20; TEMP 36–36.9; O2SAT 93–97
[2020-09-23 05:25] LABS: Hematocrit 32.7 % (42.0-52.0); Hemoglobin 11.9 g/dL (14.0-18.0); Mean Corpuscular HGB Conc 36.4 g/dl (32-36); Mean Corpuscular Hemoglobin 33.5 pg (26-34); Mean Corpuscular Volume 92.1 fl (80-100); Mean Platelet Volume 10.3 fl (7.4-10.4); Platelet Count Result 204 k/mm3 (150-375); Red Blood Count 3.55 M/mm3 (4.6-6.20); Red Cell Distribution Width 15.6 % (11.5-14.5); White Blood Count 7.3 K/mm3 (4.5-10.0)
[2020-09-23 06:02] LABS: INR 2.2; Prothrombin Time 24.9 Seconds (11.1-14.7)
[2020-09-23] MEDS: KCL 30 MEQ/0.9% SOD CHL 1,000 ML 80 ML IV CONT ×2 (06:36→20:18)
[2020-09-23] MEDS: LEVOTHYROXINE SODIUM 50 MCG TABLET PO (06:37)
[2020-09-23] MEDS: ACETAMINOPHEN 325 MG TABLET 650 MG PO (06:41)
[2020-09-23 06:42] LABS: Glucose Point of Care 83 (65-105)
[2020-09-23 06:44] LABS: Anion Gap 6 mmol/L (8-16); Blood Urea Nitrogen 15 mg/dL (9-20); Calcium 7.7 mg/dL (8.4-10.2); Carbon Dioxide 27 mmol/L (22-30); Chloride 106 mmol/L (98-107); Estimated CRCL calculation 51 ml/min; Estimated Glomerular Filt Rate > 60; Glucose 86 mg/dL (75-110); Potassium 3.2 mmol/L (3.4-5.0); Sodium 139 mmol/L (137-145)
[2020-09-23] MEDS: FAMOTIDINE 20 MG/2 ML VIAL IV PUSH (07:55)
[2020-09-23] MEDS: CHLORTHALIDONE 25 MG TABLET PO (07:55)
[2020-09-23] MEDS: atenoloL 50 MG TABLET PO (07:55)
[2020-09-23] MEDS: POTASSIUM CHLORIDE 20 MEQ TABLET PO (11:26)
[2020-09-23 11:45] LABS: Glucose Point of Care 116 (65-105)
--- NOTE | 2020-09-23 12:58 | PM.IMPN ---
Progress Note: A&P Assessment and Plan (1) Acute appendicitis with localized peritonitis and abscess: Qualifiers: Appendicitis gangrene presence: unspecified whether gangrene present Appendicitis perforation presence: with perforation Qualified Code(s): K35.33 - Acute appendicitis with perforation and localized peritonitis, with abscess Code(s): K35.33 - Acute appendicitis with perforation and localized peritonitis, with abscess Status: Acute Assessment and Plan: Presented with gradually worsened lower abdominal pain. CT a/p showed likely ruptured acute appendicitis with prominent inflammatory stranding and likely abscess. Management per General surgery. Underwent image-guided percutaneous drainage 09/22/20. Abscess fluid sent for cultures which are pending. Continue IV Zosyn at this time Analgesics and antiemetics as needed. Continue IV fluid rehydration (2) Sepsis: Qualifiers: Acute renal failure type: unspecified Sepsis acute organ dysfunction status: with acute organ dysfunction Sepsis type: sepsis due to unspecified organism Severe sepsis acute organ dysfunction type: acute renal failure Severe sepsis shock status: without septic shock Qualified Code(s): A41.9 - Sepsis, unspecified organism; R65.20 - Severe sepsis without septic shock; N17.9 - Acute kidney failure, unspecified Code(s): A41.9 - Sepsis, unspecified organism Status: Acute Assessment and Plan: Patient septic upon presentation evident by tachycardia, fever, and leukocytosis. Secondary to acute appendicitis with rupture and abscess. Lactic 1.7. Leukocytosis has resolved. Patient afebrile >48 hours Continue IV antibiotics. Await culture results and tailor antibiotics appropriately. Preliminary blood cultures show no growth to date. Final cultures will be monitored. Monitor vital signs closely (3) Hypokalemia: Code(s): E87.6 - Hypokalemia Status: Acute Assessment and Plan: Potassium low at presentation at 2.8. Potassium has been replaced with slow improvement, although remains decreased. Patient had been NPO and suspect secondary to poor oral intake. Replaced with oral KCl Monitor potassium closely and replace as needed (4) Acute renal failure: Qualifiers: Acute renal failure type: unspecified Qualified Code(s): N17.9 - Acute kidney failure, unspecified Code(s): N17.9 - Acute kidney failure, unspecified Status: Acute Assessment and Plan: Creatinine 2.5 at presentation. Last lab in July 2020 was 2.0. Suspect the patient has chronic kidney disease with probable acute injury, possibly secondary to prerenal etiology or infection. creatinine improved to 1.3 today Monitor renal function closely. Renally dose medications and avoid nephrotoxic agents. (5) Weakness: Code(s): R53.1 - Weakness Status: Acute Assessment and Plan: Likely secondary to sepsis and acute appendicitis. Resolved. Patient is ambulating to the restroom without difficulty. He is independent in his activities of daily living. Fall precautions in place. (6) Essential (primary) hypertension: Code(s): I10 - Essential (primary) hypertension Status: Acute Assessment and Plan: Blood pressure evaluated today is stable at 148/77 Continue atenolol-chlorthalidone. Home nifedipine is non-formulary. Monitor BP daily. (7) Gastro-esophageal reflux disease without esophagitis: Code(s): K21.9 - Gastro-esophageal reflux disease without esophagitis Status: Chronic Assessment and Plan: Asymptomatic at this time. Continue Pepcid (8) Hypothyroidism: Qualifiers: Hypothyroidism type: unspecified Qualified Code(s): E03.9 - Hypothyroidism, unspecified Code(s): E03.9 - Hypothyroidism, unspecified Status: Chronic Assessment and Plan: Chronic. TSH is wnl
--- NOTE | 2020-09-23 13:31 | PM.PNGS ---
Progress Note: A&P Assessment and Plan (1) Acute appendicitis with localized peritonitis and abscess: Qualifiers: Appendicitis gangrene presence: unspecified whether gangrene present Appendicitis perforation presence: with perforation Qualified Code(s): K35.33 - Acute appendicitis with perforation and localized peritonitis, with abscess Code(s): K35.33 - Acute appendicitis with perforation and localized peritonitis, with abscess Status: Acute Assessment and Plan: continues to improve. Percutaneous drainage of abscess performed yesterday and patient tolerated that well. White blood cell count is normal. No fever. Still some tachycardia. Will advance to low fiber diet. Continue IV antibiotics. 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 Protime 24.9 today with INR 2.2 continue to monitor. Subjective Subjective Date/Time Seen: 09/23/20 13:31 Patient reports: no new complaints, feels better, pain is less, tolerating liquids well and afebrile Review of Systems Review of Systems: All systems reviewed & are unremarkable except as noted in HPI and below Constitutional: Constitutional: Denies chills, Denies fever(s), Denies headache(s) and Reports increased appetite Cardiovascular: Cardiovascular: Denies chest pain and Denies dyspnea Respiratory: Respiratory: Denies cough and Denies dyspnea Gastrointestinal: Gastrointestinal: Reports as per HPI Neurologic: Denies confusion and Denies headache(s) Exam Const: General: comfortable and no acute distress; No confusion Orientation/consciousness: patient oriented x3 and No confusion GI: Inspection: non-distended and other (Pigtail catheter right lower quadrant with purulent fluid in tubing) GI Palp: Yes Soft to palpation, Yes Tenderness to palpation present (GI) ( right lower quadrant and pigtail catheter site), No Guarding due to palpation present (GI), No Palpable mass present and No Rebound tenderness present Auscultation: normal bowel sounds Neuro: General: patient oriented x3, no focal motor deficits and No confusion Extrem: General: no calf tenderness and no edema Psych: Affect: normal affect Insight: Good insight present (Psych) Judgement: Good judgement present (Psych) Objective Data Vital Signs Vital Signs: Vital Signs - 24 hr 09/22/20 14:00 09/22/20 15:14 09/22/20 16:00 Temperature 36.8 C Pulse Rate 105 H 106 H 109 H Respiratory Rate 18 18 Blood Pressure 141/69 H 151/83 H Pulse Oximetry 95 96 09/22/20 20:00 09/22/20 22:00 09/23/20 00:00 Temperature 36.3 C L Pulse Rate 99 98 85 Respiratory Rate 20 Blood Pressure 124/71 Pulse Oximetry 98 09/23/20 04:00 09/23/20 05:39 Temperature 36.4 C L Pulse Rate 92 100 Respiratory Rate 20 Blood Pressure 148/77 H Pulse Oximetry 97 Intake/Output Intake/Output: Intake & Output 09/20/20 09/21/20 09/22/20 09/23/20 23:59 23:59 23:59 23:59 Intake Total 1000 4300 2389 1650 Output Total 1000 1145 Balance 1000 3300 1244 1650 Meds/Results Medications: Active Medications Generic Name Dose Route Start Last Admin Trade Name Freq PRN Reason Stop Dose Admin Acetaminophen 650 mg 09/22/20 15:44 09/23/20 06:41 Acetami
[2020-09-23] MEDS: POTASSIUM CHLORIDE 20 MEQ TABLET.ER PO (17:21)
[2020-09-23 17:50] LABS: Glucose Point of Care 106 (65-105)
[2020-09-23] MEDS: FAMOTIDINE 20 MG TABLET PO (20:18)
[2020-09-23 23:33] LABS: Glucose Point of Care 123 (65-105)
[2020-09-24] VITALS: PULSE 79
[2020-09-24 04:00] VITALS: PULSE 72
[2020-09-24] MEDS: LEVOTHYROXINE SODIUM 50 MCG TABLET PO (05:33)
[2020-09-24] MEDS: KCL 30 MEQ/0.9% SOD CHL 1,000 ML 80 ML IV CONT (05:34)
[2020-09-24 05:44] LABS: Glucose Point of Care 88 (65-105)
[2020-09-24 06:00] VITALS: BP 137/73; PULSE 76; RESP 14; TEMP 36.6; O2SAT 94
[2020-09-24 06:01] LABS: INR 2.1; Prothrombin Time 24.1 Seconds (11.1-14.7)
[2020-09-24 06:03] LABS: Hematocrit 31.9 % (42.0-52.0); Hemoglobin 11.4 g/dL (14.0-18.0); Mean Corpuscular HGB Conc 35.7 g/dl (32-36); Mean Corpuscular Hemoglobin 33.1 pg (26-34); Mean Corpuscular Volume 92.7 fl (80-100); Mean Platelet Volume 10.6 fl (7.4-10.4); Platelet Count Result 243 k/mm3 (150-375); Red Blood Count 3.44 M/mm3 (4.6-6.20); Red Cell Distribution Width 15.6 % (11.5-14.5)
[2020-09-24 06:44] LABS: Anion Gap 4 mmol/L (8-16); Blood Urea Nitrogen 13 mg/dL (9-20); Calcium 7.8 mg/dL (8.4-10.2); Carbon Dioxide 27 mmol/L (22-30); Chloride 110 mmol/L (98-107); Estimated CRCL calculation 51 ml/min; Estimated Glomerular Filt Rate > 60; Glucose 95 mg/dL (75-110); Potassium 3.6 mmol/L (3.4-5.0); Sodium 141 mmol/L (137-145)
--- NOTE | 2020-09-24 08:34 | PM.PNGS ---
Progress Note: A&P Assessment and Plan (1) Acute appendicitis with localized peritonitis and abscess: Qualifiers: Appendicitis gangrene presence: unspecified whether gangrene present Appendicitis perforation presence: with perforation Qualified Code(s): K35.33 - Acute appendicitis with perforation and localized peritonitis, with abscess Code(s): K35.33 - Acute appendicitis with perforation and localized peritonitis, with abscess Status: Acute Assessment and Plan: Continues to do well. Will advance to diabetic diet and DC IV fluids. Teach patient to empty RICH drain and record output. Possibly home on oral antibiotics tomorrow. (2) Hypokalemia: Code(s): E87.6 - Hypokalemia Status: Acute Assessment and Plan: Up to 3.6 today. Continue potassium supplement orally. 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 Protime 24.1 today with INR 2.1 continue to monitor. Can resume warfarin but will need to monitor carefully after discharge. Subjective Subjective Date/Time Seen: 09/24/20 08:34 Patient reports: no new complaints, feels better, pain is less, tolerating a regular diet and afebrile Exam Const: General: cooperative, comfortable, no acute distress, alert and awake; No confusion Nutritional Appearance: average body habitus and well nourished Orientation/consciousness: patient oriented x3 and No confusion GI: Inspection: non-distended and other (Pigtail catheter right lower quadrant with purulent fluid in tubing) Auscultation: normal bowel sounds Neuro: General: patient oriented x3, no focal motor deficits and No confusion Extrem: General: no calf tenderness and no edema Psych: Affect: normal affect Insight: Good insight present (Psych) Judgement: Good judgement present (Psych) Objective Data Vital Signs Vital Signs: Vital Signs - 24 hr 09/23/20 12:00 09/23/20 14:00 09/23/20 16:00 Temperature 36.0 C L Pulse Rate 74 75 69 Respiratory Rate 14 Blood Pressure 107/56 L Pulse Oximetry 97 09/23/20 20:00 09/23/20 22:00 09/24/20 00:00 Temperature 36.9 C Pulse Rate 79 76 79 Respiratory Rate 16 Blood Pressure 124/65 Pulse Oximetry 93 09/24/20 04:00 09/24/20 06:00 Temperature 36.6 C Pulse Rate 72 76 Respiratory Rate 14 Blood Pressure 137/73 Pulse Oximetry 94 Intake/Output Intake/Output: Intake & Output 09/21/20 09/22/20 09/23/20 09/24/20 23:59 23:59 23:59 23:59 Intake Total 4300 2389 3050 1450 Output Total 1000 1145 20 10 Balance 3300 1244 3030 1440 Meds/Results Medications: Active Medications Generic Name Dose Route Start Last Admin Trade Name Freq PRN Reason Stop Dose Admin Acetaminophen 650 mg 09/22/20 15:44 09/23/20 06:41 Acetaminophen 325 Mg Tablet PO 650 mg Q4H PRN Administration Headache Atenolol 50 mg 09/23/20 09:00 09/23/20 07:55 Atenolol 50 Mg Tablet PO 50 mg DAILY SAPNA Administration Chlorthalidone 25 mg 09/23/20 09:00 09/23/20 07:55 Chlorthalidone 25 Mg Tablet PO 25 mg DAILY SAPNA Administration Dextrose 12.5 gm 09/21/20 04:14 Dextrose 50% 25 Gm/50 Ml Syringe IV PUSH PRN PRN Hypoglycemia Protocol Famotidine 20 mg 09/23/20 21:00 09/23/20 20:18 Famotidine 20 Mg Tablet PO 20 mg Q12HR SAPNA Administration Famotidine 20 mg 09/24/20 09:00
[2020-09-24] MEDS: atenoloL 50 MG TABLET PO (08:50)
[2020-09-24] MEDS: POTASSIUM CHLORIDE 20 MEQ TABLET.ER PO ×2 (08:50→17:02)
[2020-09-24] MEDS: FAMOTIDINE 20 MG TABLET PO ×2 (08:50→20:25)
[2020-09-24] MEDS: CHLORTHALIDONE 25 MG TABLET PO (08:50)
[2020-09-24 09:29] LABS: Glucose Point of Care 108 (65-105)
--- NOTE | 2020-09-24 10:48 | PM.IMPN ---
Progress Note: A&P Assessment and Plan (1) Acute appendicitis with localized peritonitis and abscess: Qualifiers: Appendicitis gangrene presence: unspecified whether gangrene present Appendicitis perforation presence: with perforation Qualified Code(s): K35.33 - Acute appendicitis with perforation and localized peritonitis, with abscess Code(s): K35.33 - Acute appendicitis with perforation and localized peritonitis, with abscess Status: Acute Assessment and Plan: CT a/p showed likely ruptured acute appendicitis with prominent inflammatory stranding and likely abscess. -drain placed 09/23 and cultures have been sent -continue Zosyn at this time -diet has been started today by Dr. lackey -likely discharge in 1-2 days (2) Sepsis: Qualifiers: Sepsis type: sepsis due to unspecified organism Sepsis acute organ dysfunction status: with acute organ dysfunction Severe sepsis acute organ dysfunction type: acute renal failure Acute renal failure type: unspecified Severe sepsis shock status: without septic shock Qualified Code(s): A41.9 - Sepsis, unspecified organism; R65.20 - Severe sepsis without septic shock; N17.9 - Acute kidney failure, unspecified Code(s): A41.9 - Sepsis, unspecified organism Status: Acute Assessment and Plan: Noted on admission but resolved. -evident by tachycardia, fever, and leukocytosis -Secondary to acute appendicitis with rupture and abscess. Lactic 1.7. -Leukocytosis has resolved. Patient afebrile >48 hours -blood cultures NGTD (3) Hypokalemia: Code(s): E87.6 - Hypokalemia Status: Acute Assessment and Plan: Potassium low at presentation at 2.8. Potassium has been replaced with slow improvement, although remains decreased. Patient had been NPO and suspect secondary to poor oral intake. Replaced with oral KCl Monitor potassium closely and replace as needed (4) Acute renal failure: Qualifiers: Acute renal failure type: unspecified Qualified Code(s): N17.9 - Acute kidney failure, unspecified Code(s): N17.9 - Acute kidney failure, unspecified Status: Resolved Assessment and Plan: Creatinine 2.5 at presentation -improved to 1.3 today. IV fluids have been stopped - Last lab in July 2020 was 2.0. -Suspect the patient has underlying chronic kidney disease with acute injury that has resolved -Monitor renal function closely. Renally dose medications and avoid nephrotoxic agents. (5) Weakness: Code(s): R53.1 - Weakness Status: Acute Assessment and Plan: Likely secondary to sepsis and acute appendicitis. -resolved and ambulating around the room without issue (6) Essential (primary) hypertension: Code(s): I10 - Essential (primary) hypertension Status: Acute Assessment and Plan: Blood pressure evaluated today is stable at 137/73 -Continue atenolol-chlorthalidone. -Home nifedipine is non-formulary. -Monitor BP daily. (7) Gastro-esophageal reflux disease without esophagitis: Code(s): K21.9 - Gastro-esophageal reflux disease without esophagitis Status: Chronic Assessment and Plan: Asymptomatic at this time. - Continue Pepcid (8) Hypothyroidism: Qualifiers: Hypothyroidism type: unspecified Qualified Code(s): E03.9 - Hypothyroidism, unspecified Code(s): E03.9 - Hypothyroidism, unspecified Status: Chronic Assessment and Plan: Chronic. TSH is wnl. -Continue levothyroxine. (9) Rheumatoid arthritis: Qualifiers: Rheumatoid arthritis location: unspecified site Rheumatoid factor presence: unspecified presence Qualified Code(s): M06.9 - Rheumatoid arthritis, unspecified Code(s): M06.9 - Rheumatoid arthritis, unspecified Status: Chronic Assessment and Plan: No complaints of pain at this time. -Home regimen of daily leflunomide and hydro
[2020-09-24 11:28] LABS: Glucose Point of Care 100 (65-105)
[2020-09-24 14:00] VITALS: BP 119/68; PULSE 66; RESP 18; TEMP 36.4; O2SAT 97
[2020-09-24 16:36] LABS: Glucose Point of Care 101 (65-105)
[2020-09-24 22:00] VITALS: BP 139/69; PULSE 65; RESP 16; TEMP 36.1; O2SAT 97
[2020-09-24 22:21] LABS: Glucose Point of Care 127 (65-105)
[2020-09-25 05:32] VITALS: BP 142/69; PULSE 65; RESP 16; TEMP 36.1; O2SAT 97
[2020-09-25 05:43] LABS: INR 1.7; Prothrombin Time 20.9 Seconds (11.1-14.7)
[2020-09-25 05:47] LABS: Hematocrit 34.9 % (42.0-52.0); Hemoglobin 12.4 g/dL (14.0-18.0); Mean Corpuscular HGB Conc 35.5 g/dl (32-36); Mean Corpuscular Hemoglobin 33.7 pg (26-34); Mean Corpuscular Volume 94.8 fl (80-100); Mean Platelet Volume 10.2 fl (7.4-10.4); Platelet Count Result 280 k/mm3 (150-375); Red Blood Count 3.68 M/mm3 (4.6-6.20); Red Cell Distribution Width 15.8 % (11.5-14.5); White Blood Count 6.1 K/mm3 (4.5-10.0)
[2020-09-25 05:52] LABS: Anion Gap 4 mmol/L (8-16); Blood Urea Nitrogen 11 mg/dL (9-20); Calcium 8.1 mg/dL (8.4-10.2); Carbon Dioxide 27 mmol/L (22-30); Chloride 108 mmol/L (98-107); Estimated CRCL calculation 55 ml/min; Estimated Glomerular Filt Rate > 60; Glucose 98 mg/dL (75-110); Potassium 3.8 mmol/L (3.4-5.0); Sodium 139 mmol/L (137-145)
[2020-09-25] MEDS: LEVOTHYROXINE SODIUM 50 MCG TABLET PO (06:10)
[2020-09-25 07:50] LABS: Glucose Point of Care 93 (65-105)
[2020-09-25 08:38] VITALS: PULSE 66
[2020-09-25] MEDS: POTASSIUM CHLORIDE 20 MEQ TABLET.ER PO ×2 (08:38→16:35)
[2020-09-25] MEDS: atenoloL 50 MG TABLET PO (08:38)
[2020-09-25] MEDS: CHLORTHALIDONE 25 MG TABLET PO (08:39)
[2020-09-25] MEDS: FAMOTIDINE 20 MG TABLET PO (08:39)
[2020-09-25 08:42] VITALS: PULSE 66; RESP 16; O2SAT 97
--- NOTE | 2020-09-25 09:32 | PM.PNGS ---
Progress Note: A&P Assessment and Plan (1) Acute appendicitis with localized peritonitis and abscess: Qualifiers: Appendicitis gangrene presence: unspecified whether gangrene present Appendicitis perforation presence: with perforation Qualified Code(s): K35.33 - Acute appendicitis with perforation and localized peritonitis, with abscess Code(s): K35.33 - Acute appendicitis with perforation and localized peritonitis, with abscess Status: Acute Assessment and Plan: s/p perc drain, cont abx, ok to dc home c drain and abx, plan to f/u in 1 wk for drain removal (2) Type 2 diabetes mellitus: Code(s): E11.9 - Type 2 diabetes mellitus without complications Status: Chronic Assessment and Plan: cont tight control Subjective Subjective Date/Time Seen: 09/25/20 09:32 feels good, florecita diet, +normal bowel fxn Review of Systems Review of Systems: All systems reviewed & are unremarkable except as noted in HPI and below Exam Const: General: cooperative, comfortable and no acute distress Resp: Effort & Inspection: normal respiratory effort Auscultation: clear to auscultation bilaterally Cardio: Jugular venous distension: no JVD Rate: regular rate Rhythm: regular rhythm GI: Inspection: normal to inspection, non-distended and no incisions GI Palp: No abdominal tenderness, Yes Soft to palpation, No Firmness to palpation present (GI), No Tenderness to palpation present (GI), No Guarding due to palpation present (GI) and No Rigid due to palpation Other: drain c scant s/s drainage Objective Data Vital Signs Vital Signs: Vital Signs - 24 hr 09/24/20 14:00 09/24/20 22:00 09/25/20 05:32 Temperature 36.4 C 36.1 C L 36.1 C L Pulse Rate 66 65 65 Respiratory Rate 18 16 16 Blood Pressure 119/68 139/69 142/69 H Pulse Oximetry 97 97 97 09/25/20 08:38 09/25/20 08:42 Temperature Pulse Rate 66 66 Respiratory Rate 16 Blood Pressure Pulse Oximetry 97 Intake/Output Intake/Output: Intake & Output 09/22/20 09/23/20 09/24/20 09/25/20 23:59 23:59 23:59 23:59 Intake Total 2389 3050 2437 350 Output Total 1145 20 320 Balance 1244 3030 2117 350 Meds/Results Medications: Active Medications Generic Name Dose Route Start Last Admin Trade Name Freq PRN Reason Stop Dose Admin Acetaminophen 650 mg 09/22/20 15:44 09/23/20 06:41 Acetaminophen 325 Mg Tablet PO 650 mg Q4H PRN Administration Headache Atenolol 50 mg 09/23/20 09:00 09/25/20 08:38 Atenolol 50 Mg Tablet PO 50 mg DAILY SAPNA Administration Chlorthalidone 25 mg 09/23/20 09:00 09/25/20 08:39 Chlorthalidone 25 Mg Tablet PO 25 mg DAILY SAPNA Administration Dextrose 12.5 gm 09/21/20 04:14 Dextrose 50% 25 Gm/50 Ml Syringe IV PUSH PRN PRN Hypoglycemia Protocol Famotidine 20 mg 09/23/20 21:00 09/25/20 08:39 Famotidine 20 Mg Tablet PO 20 mg Q12HR SAPNA Administration Glucagon 1 mg 09/21/20 04:14 Glucagon For Inj 1 Mg Vial IM PRN PRN Hypoglycemia Protocol Piperacillin/Tazobactam/Dextrose 3.375 gm in 50 mls @ 100 mls/hr 09/21/20 06:00 09/25/20 06:39 Zosyn 3.375 Gm/D5w 50ml Pm IVPB Infused Q6H SAPNA Infusion Dextrose 1,000 mls @ 100 mls/hr 09/21/20 04:14 Dextrose 5% 1,000 Ml IVPB PRN PRN Hypoglycemia Protocol Insulin Aspart 2 - 5 units 09/24/20 08:00 09/25/20 08:00 Insulin Aspart (*Bkc) 100 Units/Ml SUB-Q Not Given TIDWM COUNTS INCLUDE 234 BEDS AT THE [facility] Protocol Levothyroxine Sodium 50 mcg 09/23/20 06:30 09/25/20 06:10 Levothyroxine Sodium 50 Mcg Tablet PO 50 mcg DAILY@0630 SAPNA Administration Ondansetron HCl 4 mg 09/21/20 01:22 Ondansetron Inj 4 Mg/2 Ml Vial IV PUSH Q4H PRN Nausea Potassium Chloride 20 meq 09/23/20 17:00 09/25/20 08:38 Potassium Chloride 20 Meq Tablet.Er PO 20 meq BIDWM SAPNA Administration Radiology Results: ITS Impressions Abdomen/Pelvis CT 09/21/20 00:0
[2020-09-25 11:39] LABS: Glucose Point of Care 119 (65-105)
--- NOTE | 2020-09-25 13:24 | PM.IMPN ---
Progress Note: A&P Assessment and Plan (1) Acute appendicitis with localized peritonitis and abscess: Qualifiers: Appendicitis gangrene presence: unspecified whether gangrene present Appendicitis perforation presence: with perforation Qualified Code(s): K35.33 - Acute appendicitis with perforation and localized peritonitis, with abscess Code(s): K35.33 - Acute appendicitis with perforation and localized peritonitis, with abscess Status: Acute Assessment and Plan: CT a/p showed likely ruptured acute appendicitis with prominent inflammatory stranding and likely abscess. -drain placed 09/23 and growing bacteroides fragilis and e. 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 Courtney (2) Sepsis: Qualifiers: Sepsis type: sepsis due to unspecified organism Sepsis acute organ dysfunction status: with acute organ dysfunction Severe sepsis acute organ dysfunction type: acute renal failure Acute renal failure type: unspecified Severe sepsis shock status: without septic shock Qualified Code(s): A41.9 - Sepsis, unspecified organism; R65.20 - Severe sepsis without septic shock; N17.9 - Acute kidney failure, unspecified Code(s): A41.9 - Sepsis, unspecified organism Status: Acute Assessment and Plan: Noted on admission but resolved. -evident by tachycardia, fever, and leukocytosis -Secondary to acute appendicitis with rupture and abscess. Lactic 1.7. -Leukocytosis has resolved. Patient afebrile >48 hours -blood cultures NGTD (3) Hypokalemia: Code(s): E87.6 - Hypokalemia Status: Acute Assessment and Plan: Resolved, likely due to poor oral intake prior to admission and NPO diet. Suspect this will remain normal after discharge as he will go back to his regular diet (4) Acute renal failure: Qualifiers: Acute renal failure type: unspecified Qualified Code(s): N17.9 - Acute kidney failure, unspecified Code(s): N17.9 - Acute kidney failure, unspecified Status: Resolved Assessment and Plan: Creatinine 2.5 at presentation -improved to 1.2 today. IV fluids have been stopped - Last lab in July 2020 was 2.0. -Suspect the patient has underlying chronic kidney disease from his diabetes with acute injury that has resolved (5) Weakness: Code(s): R53.1 - Weakness Status: Acute Assessment and Plan: Likely secondary to sepsis and acute appendicitis. -resolved and ambulating around the room without issue (6) Essential (primary) hypertension: Code(s): I10 - Essential (primary) hypertension Status: Acute Assessment and Plan: Blood pressure evaluated today is stable at 142/69 -continue home medications (7) Gastro-esophageal reflux disease without esophagitis: Code(s): K21.9 - Gastro-esophageal reflux disease without esophagitis Status: Chronic Assessment and Plan: Continue home treatment therapy (8) Hypothyroidism: Qualifiers: Hypothyroidism type: unspecified Qualified Code(s): E03.9 - Hypothyroidism, unspecified Code(s): E03.9 - Hypothyroidism, unspecified Status: Chronic Assessment and Plan: Chronic. TSH is wnl. -Continue levothyroxine. (9) Rheumatoid arthritis: Qualifiers: Rheumatoid arthritis location: unspecified site Rheumatoid factor presence: unspecified presence Qualified Code(s): M06.9 - Rheumatoid arthritis, unspecified Code(s): M06.9 - Rheumatoid arthritis, unspecified Status: Chronic Assessment and Plan: No complaints of pain at this time. -I spoke with his public address system installer who recommends holding methotrexat
[2020-09-25 14:00] VITALS: BP 125/74; PULSE 67; RESP 20; TEMP 36; O2SAT 98
--- NOTE | 2020-10-03 13:59 | PM.DS ---
DS: Admitting Diagnosis Admitting Diagnosis Admitting Diagnosis: Acute appendicitis with abscess Acute renal faliure Hypokalemia Sepsis Rheumatoid arthritis Chronic anticoagulation Hypertension Hyperlipidemia GERD Gout Hypothyroidism Type 2 diabetes mellitus DS: Discharge Diagnosis Discharge Diagnosis (1) Acute appendicitis with localized peritonitis and abscess: Qualifiers: Appendicitis gangrene presence: unspecified whether gangrene present Appendicitis perforation presence: with perforation Qualified Code(s): K35.33 - Acute appendicitis with perforation and localized peritonitis, with abscess Code(s): K35.33 - Acute appendicitis with perforation and localized peritonitis, with abscess Status: Acute Assessment and Plan: 09/22/20 Percutaneous abscess drain placed in Radiology. (2) Type 2 diabetes mellitus: Code(s): E11.9 - Type 2 diabetes mellitus without complications Status: Chronic Assessment and Plan: Glucose stable during hospitalization. Controlled with sliding scale insulin and glucose monitoring. Hgb A1C checked during hospitalization and was 5.7. F/u with PCP. 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 PT/INR monitored and was initially 2.1. This trended down to 1.7 on discharge with warfarin on hold. Warfarin resumed on discharge and recommended close monitoring. (5) Rheumatoid arthritis: Qualifiers: Rheumatoid arthritis location: unspecified site Rheumatoid factor presence: unspecified presence Qualified Code(s): M06.9 - Rheumatoid arthritis, unspecified Code(s): M06.9 - Rheumatoid arthritis, unspecified Status: Chronic Assessment and Plan: Methotrexate held on admission. RA symptoms monitored, he had no significant complaints during his hospitalization. The Hospitalist contacted Dr. Cloud's office to decipher plan for methotrexate on discharge. The patient was instructed to hold the medication for 2 weeks and only restart if feeling well and infection has cleared. (6) Hypercholesterolemia: Code(s): E78.00 - Pure hypercholesterolemia, unspecified Status: Chronic Assessment and Plan: Stable. Resume home medication. (7) Hypothyroidism: Qualifiers: Hypothyroidism type: unspecified Qualified Code(s): E03.9 - Hypothyroidism, unspecified Code(s): E03.9 - Hypothyroidism, unspecified Status: Chronic Assessment and Plan: Stable. Resume home medication. (8) Gout, unspecified: Qualifiers: Chronicity: chronic Gout etiology: unspecified cause Gout site: unspecified site Presence of tophus: without tophus Qualified Code(s): M1A.9XX0 - Chronic gout, unspecified, without tophus (tophi) Code(s): M10.9 - Gout, unspecified Status: Chronic Assessment and Plan: Stable. Resume home medication. (9) Gastro-esophageal reflux disease without esophagitis: Code(s): K21.9 - Gastro-esophageal reflux disease without esophagitis Status: Chronic Assessment and Plan: Stable. Resume home medication. (10) BMI 34.0-34.9,adult: Code(s): Z68.34 - Body mass index [BMI] 34.0-34.9, adult Status: Acute DS: Summary Hospital Course Reason for hospitalization: DISCHARGE SUMMARY FOR 09/25/20 (backdated). 75 year old male presenting to the ED with 1 wk h/o progressively worsening lower abd pain. CT scan of the abdomen/pelvis showed Likely ruptured acute appendicitis with prominent inflammatory stranding in the right lower quadrant surrounding a likely 4.7 x 3.1 x 3.6 cm abscess. He had associated leukocytosis, acute renal failure, and hypokalemia. The pat
== END 2020-09-25 16:40 | disposition home or self-care (01) | DRG 371 ==
LOC: ANHED 09-21 02:03 → ANH2MED 09-21 02:08
PROVIDERS: Family Medicine; Physician Assistant; Surgery; Admitting Provider Surgery; Emergency Provider General Practice; PCP Internal Medicine; Visit Provider Physician Assistant
DX: K35.33 Acute appendicitis with perforation, localized peritonitis, and gangrene, with abscess (principal); R65.20 Severe sepsis without septic shock; N17.9 Acute kidney failure, unspecified; B96.20 Unspecified Escherichia coli [E. coli] as the cause of diseases classified elsewhere; B96.6 Bacteroides fragilis [B. fragilis] as the cause of diseases classified elsewhere; E87.6 Hypokalemia; K21.9 Gastro-esophageal reflux disease without esophagitis; E03.9 Hypothyroidism, unspecified; I10 Essential (primary) hypertension; M06.9 Rheumatoid arthritis, unspecified; D72.829 Elevated white blood cell count, unspecified; M1A.9XX0 Chronic gout, unspecified, without tophus (tophi); E78.00 Pure hypercholesterolemia, unspecified; E11.9 Type 2 diabetes mellitus without complications; Z79.01 Long term (current) use of anticoagulants; Z85.46 Personal history of malignant neoplasm of prostate; Z86.718 Personal history of other venous thrombosis and embolism
CPT/HCPCS: 36415; 74176; 75989; 80048; 80053; 81001; 83036; 83605; 83690; 84132; 84443; 85025; 85027; 85610; 85730; 86850; 86900; 86901; 87040; 87070; 87075; 87076; 87077; 87086; 87186; 87205; 93005; 96361; 96365; 99285; A9270; C1729; C1769; J0131; J2543; J3480; J7030; J7120

== ENCOUNTER 2021-04-23 12:32 | Emergency (ER) | payer MEDICARE, SELFPAY ==
--- NOTE | ~2021-04-23 | US_ITS ---
EXAMINATION: US venous doppler [facility] DATE: 04/23/2021 13:44 INDICATION: Left lower limb swelling TECHNIQUE: Clark scale images without and with compression and Doppler images of the left lower extrem ity veins were obtained. COMPARISON: 01/16/2016 FINDINGS: There is partial thrombosis of the left popliteal vein. The left common femoral vein, profu nda femoral vein, femoral vein, peroneal trunk, posterior tibial veins, and greater saphenous vein ar e patent. There is a 9.7 x 2.5 cm complex Gracia cyst. IMPRESSION: 1. Partial thrombosis of the left popliteal vein. These findings were discussed with Dr. Maria Fernanda MD i n the Emergency Department at 1348 hours on 04/23/2021. Reviewed, dictated and finalized at location B. IMPRESSION: 1. Partial thrombosis of the left popliteal vein. These findings were discussed with Dr. Maria Fernanda MD in the Emergency Department at 1348 hours on 04/23/2021.
[2021-04-23 13:14] VITALS: BP 119/61; PULSE 65; RESP 12; TEMP 36.7; O2SAT 99
[2021-04-23 14:26] VITALS: BP 120/78; PULSE 65; RESP 22; TEMP 36.7; O2SAT 99
--- NOTE | 2021-04-23 14:38 | ED.EXTPRO ---
HPI - Extremity Problem General Chief complaint: Extremity Problem,Nontraumatic Stated complaint: left swollen leg x 1 week Time Seen by Provider: 04/23/21 14:28 Source: patient and RN notes reviewed Mode of arrival: ambulatory Limitations: no limitations History of Present Illness HPI Narrative: This is a 76 year old male with history of DVT on chronic anticoagulation who presents for evaluation of left leg swelling for 2 week. He reports left calf pain and left leg swelling. He denies chest pain or sob. He takes warfarin daily and he states he has not missed any doses. His last INR was checked 3 weeks ago , and he states he was told to continue taking his medications. Related Data Home Medications Medication Instructions Recorded Confirmed fluticasone propionate 50 2 spray NASAL DAILY PRN 09/11/19 01/23/21 mcg/actuation nasal spray,suspension methotrexate sodium 2.5 mg tablet 20 mg PO WEEKLY tablet 09/11/19 01/23/21 hydroxychloroquine 200 mg PO DAILY 09/21/20 01/23/21 Allergies Allergy/AdvReac Type Severity Reaction Status Date / Time No Known Allergies Allergy Mild Verified 01/23/21 10:43 Review of Systems Review of Systems: All systems reviewed & are unremarkable except as noted in HPI and below Constitutional: Constitutional: Denies chills and Denies fever(s) Cardiovascular: Cardiovascular: Denies chest pain and Denies radiating jaw, neck or arm pain Respiratory: Respiratory: Denies cough, Denies dyspnea and Denies wheezing Gastrointestinal: Gastrointestinal: Denies abdominal pain and Denies nausea PMFSH Past Medical History Medical History DVT (deep venous thrombosis) Essential (primary) hypertension Gastro-esophageal reflux disease without esophagitis Gout, unspecified Hypercholesterolemia Hypothyroidism Prostate cancer Rheumatoid arthritis Surgical History Surgical History No history of previous surgery Family History Family History Mother Hypertension Cerebrovascular accident Sibling Cerebrovascular accident Cancer Social History Social History Smoking status: Never smoker Second hand tobacco smoke exposure: No Alcohol intake: never Substance use: never Substance use type: does not use Gender identity (if verbalized by the patient): Male Spiritual care concerns: No Exam Const: General: no acute distress and alert Orientation/consciousness: patient oriented x3 Eyes: EOM: EOMs intact bilaterally Chest: Chest palpation & inspection: normal inspection of the chest Resp: Effort & Inspection: normal respiratory effort and no retractions Auscultation: clear to auscultation bilaterally Cardio: Rate: regular rate Rhythm: regular rhythm Heart sounds: no murmurs GI: GI Palp: Yes Soft to palpation, No Tenderness to palpation present (GI) and No Guarding due to palpation present (GI) Auscultation: normal bowel sounds Neuro: General: patient oriented x3 Extrem: Other: bilateral leg edema but Left worse than right. left calf pain. Psych: Mental Status: mental status grossly normal Affect: normal affect Course Reevaluation(s) Reevaluation #1: I spoke with hospitalist who also spoke with pharmacy. They reports patient can be started on xarelto and he does not need to be started on lovenox . I spoke with Dr. Courtney who agrees with started xarelto at this time and he will continue to follow up with patient. Date: 04/23/21 Time: 17:11 Consultations Consultation #1: I Discussed case with DR. Courtney . He recommends talking to hematology about management. Date: 04/23/21 Time: 15:40 Consultation #2: I spoke with silverware etcher transportation director for Dr. James. She recommends patient be brigded to another oral medication
[2021-04-23 15:05] LABS: Basophils Absolute Auto 0.1 K/mm3 (0.0-0.1); Basophils Percent Auto 0.8 % (0.2-1.2); Eosinophils Absolute Auto 0.2 K/mm3 (0-0.3); Eosinophils Percent Auto 2.7 % (0-4.4); Hematocrit 36.3 % (42.0-52.0); Hemoglobin 12.2 g/dL (14.0-18.0); Immature Granulocyte Absolute 0.02 K/mm3 (0.00-0.031); Immature Granulocyte Percent A 0.3 % (0-0.5); Lymphocytes Absolute Auto 1.01 K/mm3 (0.9-3.2); Lymphocytes Percent Auto 14.3 % (18.3-44.2); Mean Corpuscular HGB Conc 33.6 g/dl (32-36); Mean Corpuscular Hemoglobin 33.4 pg (26-34); Mean Corpuscular Volume 99.5 fl (80-100); Mean Platelet Volume 9.2 fl (7.4-10.4); Monocytes Absolute Auto 0.4 K/mm3 (0.1-0.6); Monocytes Percent Auto 6.2 % (2.6-8.5); Neutrophils Absolute Auto 5.4 K/mm3 (1.3-6.7); Neutrophils Percent Auto 75.7 % (45.5-73.1); Platelet Count Result 230 k/mm3 (150-375); Red Blood Count 3.65 M/mm3 (4.6-6.20); White Blood Count 7.1 K/mm3 (4.5-10.0)
[2021-04-23 15:16] LABS: Alanine Aminotransferase 15 U/L (4-50); Albumin Level 4.1 g/dL (3.5-5.1); Alkaline Phosphatase 78 U/L (38-126); Anion Gap 5 mmol/L (8-16); Aspartate Amino Transferase 28 U/L (17-59); Bilirubin,Total 0.6 mg/dL (0.2-1.3); Blood Urea Nitrogen 25 mg/dL (9-20); Calcium 8.7 mg/dL (8.4-10.2); Carbon Dioxide 29 mmol/L (22-30); Chloride 108 mmol/L (98-107); Estimated CRCL calculation 52 ml/min; Estimated Glomerular Filt Rate > 60; Glucose 115 mg/dL (75-110); Potassium 3.5 mmol/L (3.4-5.0); Sodium 142 mmol/L (137-145)
[2021-04-23 15:18] LABS: INR 2.5; Prothrombin Time 27.9 Seconds (11.1-14.7)
[2021-04-23 15:19] LABS: Partial Thromboplastin Time 49.4 SECONDS (22.3-36.8)
[2021-04-23 17:26] VITALS: BP 122/76; PULSE 78; RESP 20; O2SAT 99
[2021-04-23] MEDS: RIVAROXABAN 15 MG TABLET PO (17:26)
== END 2021-04-23 17:53 | disposition home or self-care (01) ==
PROVIDERS: Emergency Provider General Practice; PCP Internal Medicine
DX: I82.432 Acute embolism and thrombosis of left popliteal vein (principal); E03.9 Hypothyroidism, unspecified; I10 Essential (primary) hypertension; Z79.01 Long term (current) use of anticoagulants
CPT/HCPCS: 36415; 80053; 85025; 85610; 85730; 93971; 99284; A9270

== ENCOUNTER 2022-05-31 14:32 | Outpatient (CLI) | payer MEDICARE, SELFPAY ==
[2022-05-31 14:51] LABS: Hematocrit 41.8 % (42.0-52.0); Hemoglobin 14.4 g/dL (14.0-18.0); Mean Corpuscular HGB Conc 34.4 g/dl (32-36); Mean Corpuscular Hemoglobin 34.5 pg (26-34); Mean Corpuscular Volume 100.2 fl (80-100); Mean Platelet Volume 9.8 fl (7.4-10.4); Platelet Count Result 178 k/mm3 (150-375); Red Blood Count 4.17 M/mm3 (4.6-6.20); Red Cell Distribution Width 15.8 % (11.5-14.5)
[2022-05-31 15:16] LABS: Alanine Aminotransferase 21 U/L (6-50); Alkaline Phosphatase 81 U/L (38-126); Anion Gap 10 mmol/L (8-16); Aspartate Amino Transferase 26 U/L (17-59); Bilirubin,Total 0.5 mg/dL (0.2-1.3); Blood Urea Nitrogen 21 mg/dL (9-20); Calcium 8.7 mg/dL (8.4-10.2); Carbon Dioxide 29 mmol/L (22-30); Chloride 100 mmol/L (98-107); Estimated Glomerular Filt Rate > 60; Glucose 124 mg/dL (65-110); Potassium 3.6 mmol/L (3.4-5.0); Sodium 139 mmol/L (137-145)
[2022-05-31 15:19] LABS: INR 1.2; Partial Thromboplastin Time 31.5 SECONDS (22.3-36.8); Prothrombin Time 14.6 Seconds (11.1-14.7)
== END 2022-05-31 14:33 | disposition home or self-care (01) ==
LOC: ANHLAB 14:33
PROVIDERS: PCP Internal Medicine; Visit Provider Internal Medicine Hematology & Oncology
DX: I82.5Z2 Chronic embolism and thrombosis of unspecified deep veins of left distal lower extremity (principal)
CPT/HCPCS: 36415; 80053; 85027; 85610; 85730

== ENCOUNTER 2022-06-10 12:59 | Outpatient (CLI) | payer MEDICARE, SELFPAY ==
--- NOTE | ~2022-06-10 | US_ITS ---
EXAMINATION: US venous doppler [facility] DATE: 06/10/2022 14:50 INDICATION: Left lower limb swelling. Chronic venous embolism and thrombosis of deep vessels. On jaciel knight. TECHNIQUE: Grayscale ultrasound images without and with compression and Doppler ultrasound images of the left lower extremity veins were obtained. COMPARISON: Ultrasound 04/15 FINDINGS: The visualized portions of left common femoral vein, profunda (deep) femoral vein, popliteal vein, pe roneal veins, posterior tibial veins, and greater saphenous vein outflow are patent. There is thrombu s in left femoral vein. Subcutaneous edema is noted. IMPRESSION: 1. Deep vein thrombosis involving left femoral vein. Reviewed, dictated and finalized at location A.
== END 2022-06-10 13:00 | disposition home or self-care (01) ==
LOC: ANHIMG 13:03
PROVIDERS: PCP Internal Medicine; Visit Provider Internal Medicine Hematology & Oncology
DX: I82.412 Acute embolism and thrombosis of left femoral vein (principal)
CPT/HCPCS: 93971

== ENCOUNTER 2022-09-23 10:25 | Outpatient (CLI) | payer MEDICARE, SELFPAY ==
--- NOTE | ~2022-09-23 | US_ITS ---
EXAMINATION:US venous doppler LE LT INDICATION:Chronic thrombosis of the deep veins. Patient currently on blood thinners. TECHNIQUE: Multiple grayscale, color flow and Doppler images of the left lower extremity deep venous systems were obtained and reviewed. COMPARISON:06/10/2022 FINDINGS: The common femoral, superficial femoral demonstrate normal respiratory variation, augmentat ion and compressibility. There is chronic thrombosis of the left femoral vein. There is also thrombos is of the left popliteal vein, possibly chronic. Color flow is also seen within the posterior tibial, peroneal, greater saphenous and profunda veins. IMPRESSION: 1: Deep venous thrombosis of the left femoral and popliteal veins, chronic in the femoral vein. Reviewed, dictated and finalized at location A. Y IN WORKER IMPRESSION: 1: Deep venous thrombosis of the left femoral and popliteal veins, chronic in t he femoral vein.
== END 2022-09-23 10:26 | disposition home or self-care (01) ==
PROVIDERS: PCP Internal Medicine; Visit Provider Internal Medicine Hematology & Oncology
DX: I82.512 Chronic embolism and thrombosis of left femoral vein (principal); I82.432 Acute embolism and thrombosis of left popliteal vein
CPT/HCPCS: 93971

== ENCOUNTER 2025-01-24 11:51 | Outpatient (CLI) | payer MEDICARE, SELFPAY ==
--- NOTE | ~2025-01-24 | XR_ITS ---
XR knee LT 3V 01/24/2025 12:17 Indication: Left knee pain Procedure: 4 views left knee Comparison: No prior studies for comparison. Findings: Mild tricompartment osteoarthritis. Moderate joint effusion. Osteopenia. No fracture or tra umatic malalignment. No foreign bodies. Impression: 1: Moderate tricompartment osteoarthritis. 2: Moderate joint effusion. Reviewed, dictated and finalized at location A. Impression: 1: Moderate tricompartment osteoarthritis. 2: Moderate joint effusion.
--- OUTSIDE RECORDS SUMMARY | 2025-01-24 13:16 | XMS_ITS | Clinical Summary ---
Author Organization [facility] (Former[facility]) Mainor malik Saurabh Address [address] [place] [address] Care Team Providers Care Director Of Purchasing Name Role Phone Puneet Courtney DO Primary Care Provider [phone] Allergies No known active allergies Medications atenoloL-chlort halidone (TENORETIC) 50-25 mg tablet 05/29/2022 Act sujey folic acid (FOLVITE) 1 mg tablet TAKE 3 TABLETS BY MOUTH ONCE DAILY 03/22/2022 Active glimepiride (AMARYL) 1 mg tablet 05/29/2022 Active hydrOXYchloroQU INE (PLAQUENIL) 200 mg tablet 05/29/2022 Activ e levothyroxine 50 mcg tablet 05/29/2022 Activ e methotrexate (RHEUMATREX) 2.5 mg Tablet TAKE 8 TABLETS BY MOUTH ONCE WEEKLY 2022 Active NIFEdipine (ADALAT CC) 90 mg Extended Release tablet 05/29/2022 Acti ve potassium chloride (KLOR-CON) 20 mEq Extended Release tablet 2022 Acti ve rosuvastatin (CRESTOR) 5 mg tablet 05/29/2022 Active apixaban (ELIQUIS) 5 mg tablet Take 1 Tablet (5 mg) by mouth 2 times daily. 180 Tablet 4 09/30/2022 Active Active Problems Problem Noted Date Diagnosed Date Secondary hypercoagulable state 05/31/2022 Family History Relation Name Status Comments Daughter Alive Father Mother Son Alive Social History Tobacco Use Types Packs/Day Years Used Date Smoking Tobacco: Never Tobacco Cessation:Counseling Given: Not Answered Alcohol Use Standard Drinks/Week Comments Never 0 (1 standard drink = 0.6 oz pur e alcohol) Sex and Gender Information Value Date Recorded Sex Assigned at Not on file Legal Sex Male 1:11 PM CDT Gender Identity Not on file Sexual Orientation Not on file Last Filed Vital Signs Vital Sign Reading Time Taken Comments Blood Pressure 154/72 09/30/2022 2:42 PM ASPHALT TAMPER Pulse 73 09/30/2022 2:42 PM ASPHALT TAMPER Temperature 36.3 C (97.4 F) 09/30/2022 2:42 PM ASPHALT TAMPER Respiratory Rate 16 09/30/2022 2:42 PM ASPHALT TAMPER Oxygen Saturation 94% 09/30/2022 2:42 PM ASPHALT TAMPER Inhaled Oxygen Concentration - - Weight 115.9 kg (255 lb 9.6 oz) 09/30/2022 2:42 PM ASPHALT TAMPER Height 175.3 cm (5' 9 ) 06/18/2022 3:47 PM CDT Body Mass Index 37.75 06/18/2022 3:47 PM CDT Plan of Treatment Health Maintenance Due Date Last Done Comments DTAP/TDAP/TD VACCINES (1 - Tdap) 1964 PNEUMOCOCCAL VACCINE 50+ YEARS (1 of 2 - PCV) 03/07/19 63 ZOSTER VACCINE (1 of 2) 1964 RSV VACCINE (60+ or ) (1 - 1-dose 75+ series) 2019 INFLUENZA VACCINE (#1) 2024 Insurance Care Teams Director Of Purchasing Relationship Specialty Start Date End Date Puneet Courtney DO [address] [place] [phone] PCP - General Internal Medicine 05/31/22
== END 2025-01-24 11:52 | disposition home or self-care (01) ==
PROVIDERS: PCP Internal Medicine; Visit Provider Internal Medicine
DX: M17.12 Unilateral primary osteoarthritis, left knee (principal); M25.462 Effusion, left knee
CPT/HCPCS: 73562

== ENCOUNTER 2025-02-17 10:00 | Outpatient (CLI) | payer MEDICARE, SELFPAY ==
--- NOTE | ~2025-02-17 | CT_ITS ---
CT abdomen pelvis wo con Ordering provider: Yaron Dent DO History: 79 years Male with . R31.9 - Hematuria, unspecified . Comparison: September 20, 2020 Technique: CT abdomen and pelvis without IV and without oral contrast. Automated exposure control and iterative reconstruction technique were employed. The dose-length product was 1216.41 mGy-cm. Findings: VISUALIZED LOWER CHEST: Atelectatic changes in the right lung base. UPPER ABDOMINAL ORGANS: Liver: Normal. Gallbladder: Normal. Spleen: Normal. Stomach/duodenum: Small sliding hiatus hernia. Pancreas: Normal. Adrenals: Normal. Kidneys: Simple cyst measuring 4 cm is seen in the right kidney midpole. No 2.3 cm cyst is seen in th e right kidney upper pole. 2.1 cm left upper kidney simple cyst. PELVIC ORGANS: The bladder is underfilled with thickened wall. Evaluation for cystitis advised.. BOWEL AND MESENTERY: Colon: No evidence of diverticulitis.. The appendix is not demonstrated. Small Bowel: Normal. No obstruction. Peritoneum/mesentery: No free air or free fluid. No mesenteric lymphadenopathy. RETROPERITONEUM: Mild atheromatous disease of the abdominal aorta. No retroperitoneal lymphadenopat hy. MUSCULOSKELETAL: Superficial soft tissues: Bilateral inguinal fat containing hernia. Bilateral small inguinal hernias. Otherwise, The superficial soft tissues are normal. Bones: Age appropriate degenerative changes of the spine. Bilateral sacroiliitis with fusion on the l eft. IMPRESSION: 1. No evidence of appendicitis, diverticulitis or intestinal obstruction. 2. Bilateral renal cysts. 3. Small sliding hiatus hernia. Reviewed, dictated and finalized at location A.
--- OUTSIDE RECORDS SUMMARY | 2025-02-17 11:10 | XMS_ITS | Clinical Summary ---
Author Organization [facility] Mainor malik Saurabh Address [address] [place] [address] Care Team Providers Care Application Development Liaison Name Role Phone Puneet Courtney DO Primary Care Provider [phone] Allergies No known active allergies Medications atenoloL-chlort [...] Comments Blood Pressure 154/72 09/30/2022 2:42 PM FLOORING SALES MANAGER Pulse 73 09/30/2022 2:42 PM FLOORING SALES MANAGER Temperature 36.3 C (97.4 F) 09/30/2022 2:42 PM FLOORING SALES MANAGER Respiratory Rate 16 09/30/2022 2:42 PM FLOORING SALES MANAGER Oxygen Saturation 94% 09/30/2022 2:42 PM FLOORING SALES MANAGER Inhaled Oxygen Concentration - - Weight 115.9 kg (255 lb 9.6 oz) 09/30/2022 2:42 PM FLOORING SALES MANAGER Height 175.3 cm (5' 9 ) 06/18/2022 [...] INFLUENZA VACCINE (#1) 2024 Insurance Care Teams Application Development Liaison Relationship Specialty Start Date End Date Puneet Courtney DO [address] [place] [phone] PCP - General Internal Medicine 05/31/22
== END 2025-02-17 10:01 | disposition home or self-care (01) ==
PROVIDERS: PCP Internal Medicine; Visit Provider Internal Medicine
DX: R31.9 Hematuria, unspecified (principal); N28.1 Cyst of kidney, acquired; K44.9 Diaphragmatic hernia without obstruction or gangrene
CPT/HCPCS: 74176

== ENCOUNTER 2025-03-10 06:55 | Outpatient (CLI) | payer MEDICARE, SELFPAY ==
--- NOTE | ~2025-03-10 | PE_ITS ---
EXAMINATION: PET_PETPSMAST_PT DATE: 03/10/2025 09:57 INDICATION: Prostate cancer TECHNIQUE: 5.811 mCi of Illucix Ga-68([id number]) was administered i.v. Low dose computed pancho graphy (CT) images were acquired from the base of the brain to the base of the brain to the proximal thighs for attenuation correction and anatomic localization. Positron emission tomography (PET) image s were acquired in the same distribution beginning 83 minutes after injection. Images including fused PET/CT images were reconstructed in axial, coronal, and sagittal planes. Automated exposure control technique was employed. The dose-length product was 1284.43mGy-cm. COMPARISON: None FINDINGS: Musculoskeletal: There are innumerable PSA may avid bone lesions scattered throughout the axial and appendicular skele ton with corresponding increased patchy increased density of the marrow but the majority without asso ciated lytic or blastic components. Ostial lysis can be seen involving the cortex at a few of the les ions most notably at the right iliac crest and right posterior iliac spine. Head/neck: Typical pattern of symmetric physiologic increased activity in the lacrimal, parotid and submandibula r glands as well as along the mucosa of the nasal and oral cavities, pharynx and hypopharynx. No path ologically enlarged cervical lymphadenopathy or suspicious nonosseous foci of increased uptake in the visualized head or neck. Chest: Mild dependent atelectasis in the bilateral lower lobes additional mild discoid atelectasis at the ri ght middle lobe. No suspicious pulmonary nodules, pneumonia, pleural effusion or pneumothorax. Heart size is normal. No pericardial effusion. Thoracic aorta normal in caliber. No pathologically enlarged or PSMA avid thoracic lymphadenopathy. Abdomen/pelvis/proximal thighs: Physiologic renal accumulation and excretion of activity in the kidneys, bladder and along portions o f ureters. There are photopenic defects associated with bilateral renal cysts the largest on the righ t measuring 3.9 cm. There is a 7 mm PSMA avid right pelvic lymph node with maximal SUV of 11.2. There is a small second focus of increased uptake with maximal SUV of 15.4 in the right hemipelvis located near a 5 mm lymph node positioned along the distal left ureter most likely a second metastatic lymph node although this could potentially represent focal urine activity in the ureter. There is marked i ncreased asymmetric activity throughout the enlarged prostate which extends into the right seminal ve sicle with maximal SUV of 68.9. Normal degree and slightly heterogenous pattern of increased uptake t hroughout the liver and spleen without radiologic correlate or dominant PSMA avid lesion. The gallbla dder, pancreas and bilateral adrenal glands are normal. Moderate uptake scattered throughout the laurie ls with typical duodenal and proximal jejunal predominance and without radiologic correlate, also lik laith physiologic. IMPRESSION: 1. Increased uptake throughout the enlarged prostate extending to the right seminal vesicle consisten t with primary prostate cancer. 2. Innumerable PSA may avid bone lesions consistent with metastatic disease, a few with associated os tial lysis on CT, several subtly discernible by increased density of the bone marrow on CT and many e ssentially occult on CT. 3. A couple PSMA avid right pelvic lymph nodes consistent with metastatic disease. Reviewed, dictated and finalized at location A. IMPRESSION: 1. Increased uptake throughout the enlarged prostate extending to the right mary kate inal vesicle consistent with primary prostate cancer. 2. Innumerable PSA may avid bone lesions consistent with metastatic disease, a few with associated ostial lysis on CT, several subtly discernible by increased density of the bone marrow on CT and many essentially occult on CT. 3. A couple PSMA avid right pelvic lymph nodes consistent with metastatic disea se.
--- OUTSIDE RECORDS SUMMARY | 2025-03-10 06:59 | XMS_ITS | Clinical Summary ---
Author Organization [facility] ([facility] Mainor malik Saurabh Address [address] [place] [address] Care Team Providers Care Stakes Player Name Role Phone Puneet Courtney DO Primary Care Provider [phone] Allergies No known active allergies Medications atenoloL-chlort [...] Comments Blood Pressure 154/72 09/30/2022 2:42 PM ELECTRICAL INTERN Pulse 73 09/30/2022 2:42 PM ELECTRICAL INTERN Temperature 36.3 C (97.4 F) 09/30/2022 2:42 PM ELECTRICAL INTERN Respiratory Rate 16 09/30/2022 2:42 PM ELECTRICAL INTERN Oxygen Saturation 94% 09/30/2022 2:42 PM ELECTRICAL INTERN Inhaled Oxygen Concentration - - Weight 115.9 kg (255 lb 9.6 oz) 09/30/2022 2:42 PM ELECTRICAL INTERN Height 175.3 cm (5' 9 ) 06/18/2022 [...] INFLUENZA VACCINE (#1) 2024 Insurance Care Teams Stakes Player Relationship Specialty Start Date End Date Puneet Courtney DO [address] [place] [phone] PCP - General Internal Medicine 05/31/22
== END 2025-03-10 06:56 | disposition home or self-care (01) ==
PROVIDERS: PCP Internal Medicine; Visit Provider Urology
DX: C61 Malignant neoplasm of prostate (principal); R93.89 Abnormal findings on diagnostic imaging of other specified body structures
CPT/HCPCS: 78815; A9596

== ENCOUNTER 2025-03-11 11:31 | Outpatient (CLI) | payer MEDICARE, SELFPAY ==
--- NOTE | ~2025-03-11 | CT_ITS ---
CT of the Abdomen and Pelvis: Indication: Hematuria Technique: 2.5 mm axial scans were obtained through the abdomen and pelvis prior to and following in travenous administration of 130 cc of Omnipaque 350. Dose reduction technique was used on this scan b y utilizing automated exposure control and iterative reconstruction technique. The dose-length produc t (DLP) was 2389.19 mGy-cm. COMPARISON: 02/17/2025 Findings: Scans through the lung bases demonstrate minimal right basilar atelectatic change. The liver, spleen, pancreas, gallbladder, adrenals and kidneys are within normal limits, several bila teral renal cysts. No evidence of aortic aneurysm. No lymphadenopathy. No bowel obstruction or bowel wall thickening. There is no evidence to suggest acute appendicitis. Images through the pelvis were performed. Urinary bladder unremarkable. Prostate gland is significant ly enlarged. No ascites. Impression: No significant abnormalities seen. No etiology for hematuria identified. Reviewed, dictated and finalized at [facility]. Impression: No significant abnormalities seen. No etiology for hematuria identified.
--- OUTSIDE RECORDS SUMMARY | 2025-03-11 11:36 | XMS_ITS | Clinical Summary ---
Author Organization [facility] Mainor malik Saurabh Address [address] [place] [address] Care Team Providers Care Wood Strip Block Floor Installer Name Role Phone Puneet Courtney DO Primary Care Provider [phone] Allergies No known active allergies Medications atenoloL-chlort [...] Comments Blood Pressure 154/72 09/30/2022 2:42 PM WOOL TAMPER Pulse 73 09/30/2022 2:42 PM WOOL TAMPER Temperature 36.3 C (97.4 F) 09/30/2022 2:42 PM WOOL TAMPER Respiratory Rate 16 09/30/2022 2:42 PM WOOL TAMPER Oxygen Saturation 94% 09/30/2022 2:42 PM WOOL TAMPER Inhaled Oxygen Concentration - - Weight 115.9 kg (255 lb 9.6 oz) 09/30/2022 2:42 PM WOOL TAMPER Height 175.3 cm (5' 9 ) [...] INFLUENZA VACCINE (#1) 2024 Insurance Care Teams Wood Strip Block Floor Installer Relationship Specialty Start Date End Date Puneet Courtney DO [address] [place] [phone] PCP - General Internal Medicine 05/31/22
[2025-03-11 12:49] LABS: Estimated Glomerular Filt Rate 53
== END 2025-03-11 11:32 | disposition home or self-care (01) ==
PROVIDERS: PCP Internal Medicine; Visit Provider Urology
DX: R31.0 Gross hematuria (principal)
CPT/HCPCS: 74178; Q9967

== ENCOUNTER 2025-09-20 14:42 | Outpatient (CLI) | payer MEDICARE, SELFPAY ==
--- NOTE | ~2025-09-20 | DEXA_ITS ---
Bone Density Report Name: OLINDA OLMOS Age: 80 Sex: Male Ethnicity: Black Date of : 1945 Indication: screening for osteoporosis; height loss; cancer; rheumatoid arthritis; Referring Provider: RUDY WARE Study: Bone densitometry was performed. Exam Date: September 20, 2025 Accession number: [id number] Bone Density: Region BMD T-score Z-score Classification AP Spine(L1-L4) 1.218 1.2 1.5 Normal Femoral Neck (Left) 0.700 -1.7 -0.5 Osteopenia Total Hip (Left) 0.902 -0.9 -0.1 Normal Femoral Neck (Right) 0.703 -1.7 -0.5 Osteopenia Total Hip (Right) 0.905 -0.8 -0.1 Normal Total Hip Mean 0.903 -0.9 -0.1 Normal World Health Organization criteria for BMD impression classify patients as: Normal (T-score at or above -1.0), Osteopenia (T-score between -1.0 and -2.5), or Osteoporosis (T-score at or below -2.5). 10-year Fracture Risk(1): Major Osteoporotic Fracture 9.2% Hip Fracture 3.6% Reported Risk Factors: [place] (), Neck BMD=0.700, BMI=37.1, rheumatoid arthritis (1) FRAX(R) Version 3.08. Fracture probability calculated for an untreated patient. Fracture probability may be lower if the patient has received treatment. Clinical Information Provided by Patient: Has rheumatoid arthritis Has used the following medications: Vitamin D Has the following medical conditions: Cancer, prostate cancer Patient maximum height was 69 No regular weight bearing exercise Drinks caffeinated beverages Impression: The patient has low bone mass, based on the Left Femoral Neck T-score. The patient has an estimated ten-year risk of hip fracture of 3.6% and an estimated ten-year risk of major fracture of 9.2%, based on the WHO FRAX algorithm. Discussion: BONE DENSITY IS LOW AT ONE OR MORE SKELETAL SITES. THE PATIENT'S BMD AND CLINICAL RISK FACTORS CONTRIBUTE TO THIS PATIENT'S INCREASED RISK OF FRACTURE. This patient's lowest T-score is low at one or more skeletal sites. It meets the World Health Organization's (WHO) criteria for ?low bone mass? (T-score between -1.0 and -2.5). The patient's 10-year risk of hip fracture as calculated by FRAX exceeds the threshold where pharmacological therapy is recommended by the National Osteoporosis Foundation (NOF). However, all treatment decisions require clinical judgment and consideration of individual patient factors, including patient preferences, comorbidities, previous drug use, risk factors not captured in the FRAX model (e.g., frailty, falls, vitamin D deficiency, increased bone turnover, interval significant decline in bone density) and possible under or overestimation of fracture risk by FRAX. The patient should follow a healthful lifestyle (good nutrition with adequate calcium and vitamin D, and appropriate weight-bearing exercise). Follow-Up: Consider repeating this study in 2 years to reassess this patient's status, or sooner if there is some new clinical indication. Reported by: MERVNI on 09/20/2025 3:30:00 PM. Reviewed, dictated and finalized at location A.
== END 2025-09-20 14:43 | disposition home or self-care (01) ==
LOC: MICIMG 14:43
PROVIDERS: PCP Internal Medicine; Visit Provider Urology
DX: M81.0 Age-related osteoporosis without current pathological fracture (principal); M85.89 Other specified disorders of bone density and structure, multiple sites; Z13.820 Encounter for screening for osteoporosis
CPT/HCPCS: 77080